=== PATIENT | male | born 1930 | race Caucasian/White ===

== ENCOUNTER 2017-09-30 07:45 | Inpatient (IN) | payer OTHER ==
[~2017-09-30] VITALS: Ht 172.7 cm; Wt 70.3 kg
[2017-09-30] MEDS ORDERED: SODIUM CHLORIDE 0.9% 1000ML 1,000 ML IV ONE (08:01)
[2017-09-30] MEDS ORDERED: SODIUM CHLORIDE 0.9% 1000ML 1,000 ML IV STA (08:01)
--- NOTE | 2017-09-30 08:04 | EMERGENCY ROOM VISIT NOTE ---
History Report prepared by Pierre: Ancelmo Burch Under the Supervision of: Dr. Orestes Jaffe M.D. First contact with patient: 07:56 Chief Complaint: ILLNESS Stated Complaint: GENERALIZED WEAKNESS History of Present Illness The patient is an 86 year old male who presents to the Emergency Room via EMS with complaints of a persistent illness that started a week ago. He states that he thinks he has a UTI, and has been getting up every 15 minutes to urinate. The patient says that he does not have any burning with urination or any blood in his urine. He notes that upon waking this morning, he felt weak all over and could not stop shaking. The patient denies any back pain, fevers, nausea, vomiting, cough, shortness of breath, chest pain, leg weakness or numbness, hematochezia, or melena. The patient says that he is not on any blood thinners, and notes no chronic medical conditions. Source of History: patient Onset: A week ago Position: other (global - illness) Quality: other (thinks has UTI) Timing: other (persistent) Associated Symptoms: + urinary symptoms (increased frequency, denies burning or blood), + weakness (generalized), No fevers, No chest pain, No SOB, No nausea, No vomiting, No back pain, No melena, No hematochezia, No numbness ( leg) Note: Associated symptoms: Shaking this morning. Review of Systems See HPI for pertinent positives & negatives. A total of 10 systems reviewed and were otherwise negative. Past Medical & Surgical Medical Problems: (1) Gout (2) Hyperlipidemia (3) Hypothyroidism (4) No chronic diseases present (5) Status post placement of implantable loop recorder (6) UTI (urinary tract infection) Surgical Problems: (1) S/P appy (2) S/P hernia repair Old medical records were reviewed. Nurse's notes were reviewed and I agree with. Family History Family history omitted secondary to patient's advanced age. Social History Marital Status: Housing Status: lives with family Occupation Status: retired Current/Historical Medications Scheduled Allopurinol (Zyloprim), 100 MG PO DAILY Levothyroxine Sodium (Synthroid), 1 TAB PO DAILY Simvastatin (Zocor), 20 MG PO QPM Allergies Coded Allergies: Penicillins (Unverified Allergy, Unknown, RASH, 09/30/17) Physical Exam Vital Signs Date Time Temp Pulse Resp B/P (MAP) Pulse Ox O2 Delivery O2 Flow Rate FiO2 09/30/17 10:05 93 24 09/30/17 10:00 96/57 09/30/17 09:50 99 22 09/30/17 09:35 100 16 09/30/17 09:30 113/52 09/30/17 09:20 97 23 09/30/17 09:05 101 20 93 09/30/17 09:00 133/56 09/30/17 08:50 104 18 97 09/30/17 08:45 103 19 97 09/30/17 08:45 Room Air 09/30/17 08:43 102 09/30/17 08:36 152/62 09/30/17 07:56 37.0 100 18 149/66 96 Room Air Physical Exam General: Non-ill appearing older male in no acute distress. HEENT: Normal cephalic atraumatic. Pupils are equal round and reactive to light. Extraocular movements are intact. Oropharynx is pink with moist mucous membranes. No swelling of the mouth lips or tongue. Neck: Supple with a midline trachea. No meningeal signs or stiffness, no JVD or bruits. No Stridor. Chest: Clear to auscultation bilaterally. No wheezes or rhonchi. No increased work of breathing. Heart: regular rate and rhythm. Abdomen: Bladder feels distended but nontender. Soft, without rebound guarding or rigidity. Extremities: No cyanosis clubbing or edema. No calf tenderness or assymetry Spine/Back. Non tender to palpation. No CVA tenderness Skin: Good turgor without rashes. Neurologic exam: Cranial nerves two through 12 are intact. Motor and sensation are intact and symmetrical throughout. Medical Decision & Procedures ER Provider Diagnostic Interpretation: X-ray results as stated below per interpretation by me and the radiologist: CHEST ONE VIEW PORTABLE CLINICAL HISTORY: 86 years-old Male presenting with CHEST PAIN. TECHNIQUE: Portable upright AP view of the chest was obtained. COMPARISON: None. FINDINGS: An external device projects over the left heart border. Atherosclerosis of aortic arch. Cardiac silhouette top normal in size. Minimal left basilar opacity. No large effusion or pneumothorax. Degenerative changes of the thoracic spine. Upper abdomen normal. IMPRESSION: 1. Minimal left basilar opacity likely atelectasis. No other evidence of acute cardiopulmonary disease. Electronically signed by: Inocente Arnett M.D. 09/30/2017 8:22 AM Dictated Date/Time: 09/30/2017 8:21 AM Laboratory Results 09/30/17 08:10 Red Blood Count 4.92, Mean Corpuscular Volume 93.7, Mean Corpuscular Hemoglobin 32.7, Mean Corpuscular Hemoglobin Concent 34.9, Mean Platelet Volume 11.6, Neutrophils (%) (Auto) 90.4, Lymphocytes (%) (Auto) 7.1, Monocytes (%) (Auto) 1.0, Eosinophils (%) (Auto) 0.0, Basophils (%) (Auto) 0.0, Neutrophils # (Auto) 1.79, Lymphocytes # (Auto) 0.14, Monocytes # (Auto) 0.02, Eosinophils # (Auto) 0.00, Basophils # (Auto) 0.00 09/30/17 08:10 Test 09/30/17 00:00 09/30/17 08:10 09/30/17 08:21 Urine Color YELLOW Urine Appearance CLOUDY (CLEAR) Urine pH 6.0 (4.5-7.5) Urine Specific [place] 1.013 (1.000-1.030) Urine Protein TRACE (NEG) Urine Glucose (UA) NEG (NEG) Urine Ketones NEG (NEG) Urine Occult Blood 1+ (NEG) Urine Nitrite NEG (NEG) Urine Bilirubin NEG (NEG) Urine Urobilinogen NEG (NEG) Urine Leukocyte Esterase MODERATE (NEG) Urine WBC (Auto) >30 /hpf (0-5) Urine RBC (Auto) 0-4 /hpf (0-4) Urine Hyaline Casts (Auto) 1-5 /lpf (0-5) Urine Epithelial Cells (Auto) 0-5 /lpf (0-5) Urine Bacteria (Auto) 1+ (NEG) White Blood Count 1.98 K/uL (4.8-10.8) Red Blood Count 4.92 M/uL (4.7-6.1) Hemoglobin 16.1 g/dL (14.0-18.0) Hematocrit 46.1 % (42-52) Mean Corpuscular Volume 93.7 fL (80-100) Mean Corpuscular Hemoglobin 32.7 pg (25-34) Mean Corpuscular Hemoglobin Concent 34.9 g/dl (32-36) Platelet Count 121 K/uL (130-400) Mean Platelet Volume 11.6 fL (7.4-10.4) Neutrophils (%) (Auto) 90.4 % Lymphocytes (%) (Auto) 7.1 % Monocytes (%) (Auto) 1.0 % Eosinophils (%) (Auto) 0.0 % Basophils (%) (Auto) 0.0 % Neutrophils # (Auto) 1.79 K/uL (1.4-6.5) Lymphocytes # (Auto) 0.14 K/uL (1.2-3.4) Monocytes # (Auto) 0.02 K/uL (0.11-0.59) Eosinophils # (Auto) 0.00 K/uL (0-0.5) Basophils # (Auto) 0.00 K/uL (0-0.2) RDW Standard Deviation 45.9 fL (36.4-46.3) RDW Coefficient of Variation 13.3 % (11.5-14.5) Immature Granulocyte % (Auto) 1.5 % Immature Granulocyte # (Auto) 0.03 K/uL (0.00-0.02) Prothrombin Time 10.6 SECONDS (9.0-12.0) Prothromb Time International Ratio 1.0 (0.9-1.1) Anion Gap 11.0 mmol/L (3-11) Est Creatinine Clear Calc Drug Dose 37.2 ml/min Estimated GFR () 51.8 Estimated GFR (Non- 44.7 BUN/Creatinine Ratio 14.3 (10-20) Calcium Level 9.4 mg/dl (8.5-10.1) Total Bilirubin 1.5 mg/dl (0.2-1) Direct Bilirubin 0.5 mg/dl (0-0.2) Aspartate Amino Transf (AST/SGOT) 36 U/L (15-37) Alanine Aminotransferase (ALT/SGPT) 26 U/L (12-78) Alkaline Phosphatase 242 U/L (45-117) Total Protein 7.4 gm/dl (6.4-8.2) Albumin 3.4 gm/dl (3.4-5.0) Lipase 126 U/L (73-393) Bedside Lactic Acid Venous 2.62 mmol/L (0.90-1.70) Laboratory studies as stated above per my review. Medications Administered Medications (Trade) Dose Ordered Sig/Nataly Route Start Time Stop Time Status Last Admin Dose Admin Sodium Chloride 1,000 ml @ 999 mls/hr Q1H1M STAT IV 09/30/17 08:01 09/30/17 09:01 DC 09/30/17 08:15 999 MLS/HR Sodium Chloride 1,000 ml @ 150 mls/hr Q6H40M ONCE IV 09/30/17 08:01 09/30/17 11:30 DC 09/30/17 08:49 150 MLS/HR Ondansetron HCl (Zofran Inj) 4 mg STK-MED ONCE .ROUTE 09/30/17 08:50 09/30/17 08:51 DC 09/30/17 08:54 4 MG Levofloxacin (Levaquin / D5W) 500 mg NOW ONCE IV 09/30/17 09:15 09/30/17 09:16 DC 09/30/17 09:22 500 MG ECG Indication: weakness Rate (beats per minute): 104 Rhythm: sinus tachycardia Findings: other (nonspecific ST abnormality) Comparison ECG Date: no prior available ED Course 0758: Past medical records reviewed. The patient was evaluated in room B2, and a complete history and physical examination were performed. 0801: Ordered NSS 1000 ml @ 150 mls/hr IV, NSS 1000 ml @ 999 mls/hr IV. 0915: Ordered Levaquin / D5W 500 mg IV. 0920: Upon reevaluation, the patient is resting and had 2 liters in the Warren and is feeling slightly nauseated. I discussed the results and treatment plan with the patient and his . They verbalized agreement of the treatment plan. The patient will be evaluated for further management. 0927: Discussed the patient's case with Dr. Santino Tilley acid concentrator. The patient will be evaluated for further management. Medical Decision Differentials include UTI, sepsis, urinary retention, electrolyte or metabolic abnormality, pneumonia, cardiac disease. This patient comes in as described above. He was placed in room B2. He is here for urinary symptoms for about a week he also felt weak and may have had some shakes this morning although feels better now. He is afebrile stable vital signs . His bladder does feel distended on exam although he does need to urinate. IV access established. A full septic workup was obtained and did a bladder scan as well as urinalysis and culture blood cultures and lactic acid were obtained he was reassessed frequently. He was found to be retaining urine and a Warren catheter was placed. His urine does suggest infection. His lactic acid is also elevated. His white count and platelets on the low side. He was given IV Levaquin as he is penicillin allergic and also this will give prostate coverages well in the event that that is the source. I do think he needs to be admitted/observed for further treatment and evaluation. I did consult the [facility] hospitalist for these measures. Medication Reconcilliation Current Medication List: was personally reviewed by me Blood Pressure Screening Patient's blood pressure: Elevated blood pressure Further monitored in hospital. Consults Time Called: [phone] Consulting Physician: Dr. Santino Tilley acid concentrator Returned Call: [phone] Discussed the patient's case with Dr. Santino Tilley acid concentrator. The patient will be evaluated for further management. Impression Primary Impression: PNA (pneumonia) Scribe Attestation The scribe's documentation has been prepared under my direction and personally reviewed by me in its entirety. I confirm that the note above accurately reflects all work, treatment, procedures, and medical decision making performed by me. Departure Information Dispostion Being Evaluated By Hospitalist Referrals No Doctor, Assigned (PCP) Patient Instructions My [facility] Problem Qualifiers Primary Impression: PNA (pneumonia)
--- NOTE | 2017-09-30 08:23 | DIAGNOSTIC IMAGING REPORT ---
CHEST ONE VIEW PORTABLE CLINICAL HISTORY: 86 years-old Male presenting with CHEST PAIN. TECHNIQUE: Portable upright AP view of the chest was obtained. COMPARISON: None. FINDINGS: An external device projects over the left heart border. Atherosclerosis of aortic arch. Cardiac silhouette top normal in size. Minimal left basilar opacity. No large effusion or pneumothorax. Degenerative changes of the thoracic spine. Upper abdomen normal. IMPRESSION: 1. Minimal left basilar opacity likely atelectasis. No other evidence of acute cardiopulmonary disease. Electronically signed by: Inocente Arnett M.D. 09/30/2017 8:22 AM Dictated Date/Time: 09/30/2017 8:21 AM
[2017-09-30 08:30] LABS: HEMATOCRIT 46.1 % (42-52); HEMOGLOBIN 16.1 g/dL (14.0-18.0); IG# 0.03 K/uL (0.00-0.02); LYMPH % 7.1 %; LYMPH ABS # 0.14 K/uL (1.2-3.4); MEAN CELL VOLUME 93.7 fL (80-100); MEAN CORPUSCULAR HEMOGLOBIN 32.7 pg (25-34); MEAN CORPUSCULAR HGB CONC 34.9 g/dl (32-36); MEAN PLATELET VOLUME 11.6 fL (7.4-10.4); MONO ABS # 0.02 K/uL (0.11-0.59); NEUT % 90.4 %; NEUT ABS # 1.79 K/uL (1.4-6.5); PLATELET COUNT 121 K/uL (130-400); RED CELL DISTRIBUTION WIDTH CV 13.3 % (11.5-14.5); RED CELL DISTRIBUTION WIDTH SD 45.9 fL (36.4-46.3); WHITE BLOOD COUNT 1.98 K/uL (4.8-10.8)
[2017-09-30] MEDS ORDERED: SIMV20TA2 PO (08:45)
[2017-09-30] MEDS ORDERED: LEVO25TA PO (08:45)
[2017-09-30] MEDS ORDERED: ALLO100T PO (08:46)
[2017-09-30] MEDS ORDERED: ONDANSETRON INJ 2 MG/ML 2 ML VIAL ONE (08:50)
[2017-09-30 08:52] LABS: ALBUMIN 3.4 gm/dl (3.4-5.0); CALCIUM 9.4 mg/dl (8.5-10.1); CREATININE 1.43 mg/dl (0.60-1.40); POTASSIUM 3.9 mmol/L (3.5-5.1)
[2017-09-30 08:55] LABS: TOTAL PROTEIN 7.4 gm/dl (6.4-8.2)
[2017-09-30 09:05] VITALS: O2SAT 93
[2017-09-30] MEDS ORDERED: LEVAQUIN 500MG / 100ML D5W IV ONE (09:15)
[2017-09-30] MEDS ORDERED: IV FLUIDS COMPLETED PRN (10:30)
[2017-09-30] MEDS ORDERED: ONDANSETRON INJ 2 MG/ML 2 ML VIAL IV PRN (10:45)
[2017-09-30] MEDS ORDERED: POLYETHYLENE (MIRALAX) 17 GM PACK PO PRN (10:45)
[2017-09-30] MEDS ORDERED: ACETAMINOPHEN 325 MG TAB PO PRN (10:45)
[2017-09-30] MEDS ORDERED: LEVO50TA PO (10:46)
--- NOTE | 2017-09-30 11:01 | History and Physical ---
History & Physical Date & Time of Service: Sep 30, 2017 at 10:46 Chief Complaint: Generalized Weakness Primary Care Physician: Ha Rain MD History of Present Illness Source: patient, family, spouse, clinic records 86 yo M presents with progressive weakness and acute urinary retention. He reports difficulty urinating since Mon (4 days ago), denies dysuria, flank pain or fevers but reports some chills this morning. He was feeling like he had a UTI and called his PCP who ordered a urine sample that looked infected. No culture is available at this time. The patient was scheduled to followup this morning but came to the ER instead. Family reports that he is progressively more weak and was falling at home. They also report that he passed out on night after dinner when trying to arise out of a chair. reports that this happens to him whenever he gets an infection. For example, they went to [facility] in Jul 2017 and he had bronchitis and suffered a syncopal episode then , also. He is under the care of Dr. Jorgensen and has a loop recorder in place with no abnormalities detected to date. At baseline, he works out at the [employer] three times per week for an hour, and ambulates without using an assistive device. ROS is otherwise negative. Past Medical/Surgical History Medical Problems: (1) Gout Status: Chronic (2) Hyperlipidemia Status: Chronic (3) Hypothyroidism Status: Chronic (4) No chronic diseases present Status: Chronic (5) Status post placement of implantable loop recorder Status: Chronic Surgical Problems: (1) S/P appy Status: Chronic (2) S/P hernia repair Status: Chronic Family History FH: diabetes mellitus MOTHER FH: heart attack FATHER, Onset:60 years & older Social History Smoking Status: Never Smoker Smokeless Tobacco Use: No Alcohol Use: socially Drug Use: none Marital Status: Housing status: lives with significant other Occupational Status: retired Immunizations History of Influenza Vaccine: Yes Influenza Vaccine Date: Aug 07, 2017 History of Tetanus Vaccine?: Yes Tetanus Immunization Date: Jan 22, 2010 History of Pneumococcal: Yes Pneumococcal Date: February 20, 2015 History of Hepatitis B Vaccine: Unknown Multi-Drug Resistant Organisms History of MDRO: No Allergies Coded Allergies: Penicillins (Unverified Allergy, Unknown, RASH, 09/30/17) Home Medications Scheduled Allopurinol (Zyloprim), 100 MG PO DAILY Levothyroxine Sodium (Synthroid), 1 TAB PO DAILY Simvastatin (Zocor), 20 MG PO QPM Review of Systems At least ten systems were reviewed and negative except as indicated in HPI. Physical Exam Vital Signs Date Time Temp Pulse Resp B/P (MAP) Pulse Ox O2 Delivery O2 Flow Rate FiO2 09/30/17 10:44 98 09/30/17 08:45 103 19 97 09/30/17 08:45 Room Air 09/30/17 08:43 102 09/30/17 08:36 152/62 09/30/17 07:56 37.0 100 18 149/66 96 Room Air General Appearance: WD/WN, no apparent distress Head: normocephalic, atraumatic Eyes: normal inspection, PERRL, sclerae normal ENT: pharynx normal, + pertinent finding ([place]OW-uses hearing aids, very dry mucous membranes) Neck: supple, no adenopathy, trachea midline Respiratory/Chest: lungs clear, normal breath sounds, no respiratory distress, no accessory muscle use Cardiovascular: no edema, no gallop, no JVD, no murmur, normal peripheral pulses, + tachycardia (reg rhythm) Abdomen/GI: normal bowel sounds, non tender, soft Back: normal inspection, no CVA tenderness Extremities/Musculoskelatal: normal inspection, no pedal edema, normal range of motion Neurologic/Psych: bleacher lard II-XII nml as tested, no motor/sensory deficits, alert, normal mood/affect, oriented x 3 Skin: normal color, warm/dry, no rash Diagnostics Laboratory Results 09/30/17 08:10 Red Blood Count 4.92, Mean Corpuscular Volume 93.7, Mean Corpuscular Hemoglobin 32.7, Mean Corpuscular Hemoglobin Concent 34.9, Mean Platelet Volume 11.6, Neutrophils (%) (Auto) 90.4, Lymphocytes (%) (Auto) 7.1, Monocytes (%) (Auto) 1.0, Eosinophils (%) (Auto) 0.0, Basophils (%) (Auto) 0.0, Neutrophils # (Auto) 1.79, Lymphocytes # (Auto) 0.14, Monocytes # (Auto) 0.02, Eosinophils # (Auto) 0.00, Basophils # (Auto) 0.00 09/30/17 08:10 Test 09/30/17 00:00 12/30/17 08:10 09/30/17 08:21 Urine Color YELLOW Urine Appearance CLOUDY (CLEAR) Urine pH 6.0 (4.5-7.5) Urine Specific [place] 1.013 (1.000-1.030) Urine Protein TRACE (NEG) Urine Glucose (UA) NEG (NEG) Urine Ketones NEG (NEG) Urine Occult Blood 1+ (NEG) Urine Nitrite NEG (NEG) Urine Bilirubin NEG (NEG) Urine Urobilinogen NEG (NEG) Urine Leukocyte Esterase MODERATE (NEG) Urine WBC (Auto) >30 /hpf (0-5) Urine RBC (Auto) 0-4 /hpf (0-4) Urine Hyaline Casts (Auto) 1-5 /lpf (0-5) Urine Epithelial Cells (Auto) 0-5 /lpf (0-5) Urine Bacteria (Auto) 1+ (NEG) White Blood Count 1.98 K/uL (4.8-10.8) Red Blood Count 4.92 M/uL (4.7-6.1) Hemoglobin 16.1 g/dL (14.0-18.0) Hematocrit 46.1 % (42-52) Mean Corpuscular Volume 93.7 fL (80-100) Mean Corpuscular Hemoglobin 32.7 pg (25-34) Mean Corpuscular Hemoglobin Concent 34.9 g/dl (32-36) Platelet Count 121 K/uL (130-400) Mean Platelet Volume 11.6 fL (7.4-10.4) Neutrophils (%) (Auto) 90.4 % Lymphocytes (%) (Auto) 7.1 % Monocytes (%) (Auto) 1.0 % Eosinophils (%) (Auto) 0.0 % Basophils (%) (Auto) 0.0 % Neutrophils # (Auto) 1.79 K/uL (1.4-6.5) Lymphocytes # (Auto) 0.14 K/uL (1.2-3.4) Monocytes # (Auto) 0.02 K/uL (0.11-0.59) Eosinophils # (Auto) 0.00 K/uL (0-0.5) Basophils # (Auto) 0.00 K/uL (0-0.2) RDW Standard Deviation 45.9 fL (36.4-46.3) RDW Coefficient of Variation 13.3 % (11.5-14.5) Immature Granulocyte % (Auto) 1.5 % Immature Granulocyte # (Auto) 0.03 K/uL (0.00-0.02) Prothrombin Time 10.6 SECONDS (9.0-12.0) Prothromb Time International Ratio 1.0 (0.9-1.1) Anion Gap 11.0 mmol/L (3-11) Est Creatinine Clear Calc Drug Dose 37.2 ml/min Estimated GFR () 51.8 Estimated GFR (Non- 44.7 BUN/Creatinine Ratio 14.3 (10-20) Calcium Level 9.4 mg/dl (8.5-10.1) Total Bilirubin 1.5 mg/dl (0.2-1) Direct Bilirubin 0.5 mg/dl (0-0.2) Aspartate Amino Transf (AST/SGOT) 36 U/L (15-37) Alanine Aminotransferase (ALT/SGPT) 26 U/L (12-78) Alkaline Phosphatase 242 U/L (45-117) Total Protein 7.4 gm/dl (6.4-8.2) Albumin 3.4 gm/dl (3.4-5.0) Lipase 126 U/L (73-393) Bedside Lactic Acid Venous 2.62 mmol/L (0.90-1.70) Date/Time Source Procedure Growth Status 09/30/17 08:15 Blood Blood Culture Pending Received Results Past 24 Hours Test 09/30/17 00:00 09/30/17 08:10 09/30/17 08:21 Range/Units Urine Color YELLOW Urine Appearance CLOUDY CLEAR Urine pH 6.0 4.5-7.5 Urine Specific [place] 1.013 1.000-1.030 Urine Protein TRACE NEG Urine Glucose (UA) NEG NEG Urine Ketones NEG NEG Urine Occult Blood 1+ NEG Urine Nitrite NEG NEG Urine Bilirubin NEG NEG Urine Urobilinogen NEG NEG Urine Leukocyte Esterase MODERATE NEG Urine WBC (Auto) >30 0-5 /hpf Urine RBC (Auto) 0-4 0-4 /hpf Urine Hyaline Casts (Auto) 1-5 0-5 /lpf Urine Epithelial Cells (Auto) 0-5 0-5 /lpf Urine Bacteria (Auto) 1+ NEG White Blood Count 1.98 4.8-10.8 K/uL Red Blood Count 4.92 4.7-6.1 M/uL Hemoglobin 16.1 14.0-18.0 g/dL Hematocrit 46.1 42-52 % Mean Corpuscular Volume 93.7 80-100 fL Mean Corpuscular Hemoglobin 32.7 25-34 pg Mean Corpuscular Hemoglobin Concent 34.9 32-36 g/dl Platelet Count 121 130-400 K/uL Mean Platelet Volume 11.6 7.4-10.4 fL Neutrophils (%) (Auto) 90.4 % Lymphocytes (%) (Auto) 7.1 % Monocytes (%) (Auto) 1.0 % Eosinophils (%) (Auto) 0.0 % Basophils (%) (Auto) 0.0 % Neutrophils # (Auto) 1.79 1.4-6.5 K/uL Lymphocytes # (Auto) 0.14 1.2-3.4 K/uL Monocytes # (Auto) 0.02 0.11-0.59 K/uL Eosinophils # (Auto) 0.00 0-0.5 K/uL Basophils # (Auto) 0.00 0-0.2 K/uL RDW Standard Deviation 45.9 36.4-46.3 fL RDW Coefficient of Variation 13.3 11.5-14.5 % Immature Granulocyte % (Auto) 1.5 % Immature Granulocyte # (Auto) 0.03 0.00-0.02 K/uL Sodium Level 136 136-145 mmol/L Potassium Level 3.9 3.5-5.1 mmol/L Chloride Level 100 98-107 mmol/L Carbon Dioxide Level 25 21-32 mmol/L Anion Gap 11.0 3-11 mmol/L Blood Urea Nitrogen 20 7-18 mg/dl Creatinine 1.43 0.60-1.40 mg/dl Est Creatinine Clear Calc Drug Dose 37.2 ml/min Estimated GFR () 51.8 Estimated GFR (Non- 44.7 BUN/Creatinine Ratio 14.3 10-20 Random Glucose 132 70-99 mg/dl Calcium Level 9.4 8.5-10.1 mg/dl Total Bilirubin 1.5 0.2-1 mg/dl Direct Bilirubin 0.5 0-0.2 mg/dl Aspartate Amino Transf (AST/SGOT) 36 15-37 U/L Alanine Aminotransferase (ALT/SGPT) 26 12-78 U/L Alkaline Phosphatase 242 45-117 U/L Total Protein 7.4 6.4-8.2 gm/dl Albumin 3.4 3.4-5.0 gm/dl Lipase 126 73-393 U/L Bedside Lactic Acid Venous 2.62 0.90-1.70 mmol/L Microbiology Results 09/30/17 Blood Culture, Received Pending 09/30/17 Blood Culture, Received Pending Diagnostic Radiology [~ rep ct add3]] CHEST ONE VIEW PORTABLE CLINICAL HISTORY: 86 years-old Male presenting with CHEST PAIN. TECHNIQUE: Portable upright AP view of the chest was obtained. COMPARISON: None. FINDINGS: An external device projects over the left heart border. Atherosclerosis of aortic arch. Cardiac silhouette top normal in size. Minimal left basilar opacity. No large effusion or pneumothorax. Degenerative changes of the thoracic spine. Upper abdomen normal. IMPRESSION: 1. Minimal left basilar opacity likely atelectasis. No other evidence of acute cardiopulmonary disease. EKG ST 104 Impression Assessment and Plan 86 yo M presents with clinical picture consistent with sepsis 2/2 UTI with acute urinary retention. 1. Sepsis 2/2 UTI-IVF continued and will repeat lactate until <2. Abx changed to ceftriaxone empirically while awaiting culture results. Blood cultures were ordered. No CVA tenderness or clinical evidence of pyelo at this time. Warren placed in ER wtih 2L out per ER physician. Started 1/2 NS to avoid dehydration from poss post-obstructive diuresis. Urology to see. No h/o BPH reported. Has h/o syncope so would use caution with alpha-blockers, etc. Orthostatics qshift. PT/OT consult. Monitor on telemetry. 2. Leukopenia-poss related to sepsis. No baseline available for comparison in the records. Cont to monitor. 3. Acute urinary retention-likely 2/2 UTI. Plan as above. 4. YONAS likely related to post-obstructive issues and/or prerenal azotemia-cont fluids and Warren. Trend PRP. Normal at baseline, no CKD history. 5. Falls at home-likely related to infection as patient is very functional at baseline. PT/OT 6. Syncope likely related to orthostasis with infection as this is his history and patient felt bad just prior to and was changing positions just after dinner when this occurred. Follows with [facility] barry and has implantable loop recorder in place. In the past this has been interrogated with syncope and been unremarkable for arrhythmia. No echo on file so will order one now for completion. No murmur was heard on exam and pt has no h/o cardiac disease. 7. Hypothyroidism-cont home dose Synthroid 8. Gout-cont daily allopurinol DVT proph-heparin Full Code Dispo-to telemetry [facility] Level of Care Telemetry Resuscitation Status FULL RESUSCITATION VTE Prophylaxis VTE Risk Assessment Done? Y/N: Yes Risk Level: Moderate Given or contraindicated: Unfractionated heparin SQ
--- NOTE | 2017-09-30 11:30 | NUR ---
A: Report received from Loyd RN in ED. Pt. arrived to 279-1, pulled from litter to bed with assist x3 d/t severe weakness. See admission assessment for full customer liaison. at bedside. Oriented to room, call kruger system and lights. IV fluids infusing as ordered. Call kruger within reach. Continue to monitor.
[2017-09-30] MEDS: SODIUM CHLORIDE 0.45% 1000ML 1,000 ML IV SCH ×2 (11:31→21:57)
[2017-09-30 11:40] VITALS: Ht 172.7 cm; Wt 70.3 kg
[2017-09-30 11:45] VITALS: BP 94/57; PULSE 96; TEMP 37; O2SAT 94
[2017-09-30] MEDS: CEFTRIAXONE SOD INJ 1 GM in DEXTROSE 5% ADD-VANTAGE 50ML 50 ML IV SCH (12:23)
[2017-09-30] MEDS: HEPARIN SOD 5000 UNIT/0.5 ML CARP SQ SCH ×2 (14:41→21:57)
[2017-09-30 14:54] VITALS: BP 88/48; PULSE 93; TEMP 36.7; O2SAT 92
--- NOTE | 2017-09-30 16:00 | NUR ---
A: Alert and oriented x4. VSS on room air. Family at bedside. Denies pain, shortness of breath or chest pain. NSR on monitor. Call kruger within reach. Continue to monitor.
[2017-09-30 19:46] VITALS: BP 97/60; PULSE 79; TEMP 36.8; O2SAT 95
--- NOTE | 2017-09-30 20:00 | NUR ---
A/OBS note: Patient assessed. See EMR for full assessment. AAO x4. NSR on the monitor. Warren catheter patent. Receiving IVF 0.45 NSS @ 125mls/hr. Denies pain. Will continue to monitor.
[2017-09-30] MEDS: SIMVASTATIN 20 MG TAB PO SCH (20:45)
[2017-09-30 23:06] VITALS: BP 83/44; PULSE 69; TEMP 36.9; O2SAT 96
--- NOTE | 2017-09-30 23:21 | Urology Consultation ---
History General Date of Service: Sep 30, 2017. Primary Care Physician: Ha Rain MD Pt seen a urologist before?: No History of Present Illness 86 yo M presents with progressive weakness and acute urinary retention. He reports difficulty urinating since Mon (4 days ago), denies dysuria, flank pain or fevers but reports some chills this morning. He was feeling like he had a UTI and called his PCP who ordered a urine sample that looked infected. No culture is available at this time. The patient was scheduled to followup this morning but came to the ER instead. Family reports that he is progressively more weak and was falling at home. They also report that he passed out on night after dinner when trying to arise out of a chair. reports that this happens to him whenever he gets an infection. Pt denies any significant urologic hx. At a baseline he does have some of the typical sxs of BPH with a slower stream, urge, freq, not feeling like he empties completely, and nocturia. He isn't overly bothered by these sxs unless he feels like he has an infx. In the ER a bladder scan was performed and this showed an elevated residual. In the ED a arshad was placed at >2L was drained. The urine was cinda. No hematuria. No cloudiness. Since then the arsahd has been draining adequately. He was placed on fluid replacement for post-obst diuresis. His Cr is slightly elevated. UA susp for possible infx. Cx pending. ROS is otherwise negative. Laboratory Labs were reviewed and are within normal limits unless listed below. Labs are available in the chart and at [facility] Problem List Medical Problems: (1) PNA (pneumonia) Status: Acute Past History other Past Surgical History: other Family History FH: diabetes mellitus MOTHER FH: heart attack FATHER, Onset:60 years & older Social History Hx Tobacco Use In Past Year?: No Marital status: Housing status: lives with significant other Occupation status: retired Immunizations History of Influenza Vaccine: Yes Influenza Vaccine Date: Aug 07, 2017 History of Tetanus Vaccine?: Yes Tetanus Immunization Date: Jan 22, 2010 History of Pneumococcal: Yes Pneumococcal Date: February 20, 2015 History of Hepatitis B Vaccine: Unknown History of MDRO No Allergies Coded Allergies: Penicillins (Unverified Allergy, Unknown, RASH, 09/30/17) Medications Home Medications: Home Meds and Scripts Medications Dose Route/Sig Max Daily Dose Days Date Category Synthroid (Levothyroxine Sodium) 50 Mcg Tab 1 Tab PO DAILY 30 09/30/17 Reported Zyloprim (Allopurinol) 100 Mg Tab 100 Mg PO DAILY 09/30/17 Reported Zocor (Simvastatin) 20 Mg Tab 20 Mg PO QPM 09/30/17 Reported Inpatient Medications: Current Inpatient Medications Medications (Trade) Dose Ordered Sig/Nataly Route Start Time Stop Time Status Last Admin Dose Admin Miscellaneous (Iv Fluids Completed) 1 ea PRN PRN N/A 09/30/17 10:30 09/30/18 10:29 Heparin Sodium (Porcine) (Heparin Sq 5000 Unit/0.5ml) 5,000 unit Q8 SQ 09/30/17 14:00 10/30/17 13:59 09/30/17 21:57 5,000 UNIT Acetaminophen (Tylenol Tab) 650 mg Q4H PRN PO 09/30/17 10:45 10/30/17 10:44 Ondansetron HCl (Zofran Inj) 4 mg Q6H PRN IV 09/30/17 10:45 10/30/17 10:44 Polyethylene (Miralax Powder Packet) 17 gm DAILY PRN PO 09/30/17 10:45 10/30/17 10:44 Sodium Chloride 1,000 ml @ 125 mls/hr Q8H IV 09/30/17 12:00 10/01/17 03:59 09/30/17 21:57 125 MLS/HR Ceftriaxone Sodium 1 gm/ Dextrose 50 ml @ 100 mls/hr Q24H IV 09/30/17 12:00 10/10/17 11:59 09/30/17 12:23 100 MLS/HR Allopurinol (Zyloprim Tab) 100 mg DAILY PO 10/01/17 09:00 10/31/17 08:59 Levothyroxine Sodium (Synthroid Tab) 50 mcg DAILYBB PO 10/01/17 06:30 10/31/17 06:29 Simvastatin (Zocor Tab) 20 mg QPM PO 09/30/17 21:00 10/30/17 20:59 09/30/17 20:45 20 MG Review of Systems Review of Systems Neurological: + dizzy, + passing out Male : + nocturia more than once/night All Other Systems: Reviewed and Negative Physical Exam Vital Signs: Vital Signs Past 12 Hours Date Time Temp Pulse Resp B/P (MAP) Pulse Ox O2 Delivery O2 Flow Rate FiO2 09/30/17 23:06 36.9 69 18 83/44 (57) 96 Room Air 09/30/17 19:46 36.8 79 18 97/60 (72) 95 Room Air 09/30/17 16:00 Room Air 09/30/17 14:54 36.7 93 17 88/48 (61) 92 Room Air 09/30/17 11:45 37.0 96 18 94/57 (69) 94 Room Air 09/30/17 11:40 Room Air Physical Exam: General Appearance: WD/WN, no apparent distress ENT: hearing grossly normal Neck: supple, no adenopathy Respiratory/Chest: lungs clear Cardiovascular: regular rate, rhythm Extremities: normal range of motion, normal inspection Neurologic/Psychiatric: alert, oriented x 3 Skin: warm/dry, no rash Lymphatic: no adenopathy Assessment & Plan Assessment & Plan (1) Urinary retention (2) UTI (urinary tract infection) The patient presented with large volume urinary retention and UTI. Although he denied significant urinary complaints prior, to have a residual of >2L is indicative of a chronic process. Cr should trend down with arshad drainage. Monitor lytes during diuresis. Continue abx until cultures are finalized. Given issues with passing out I would hold off on Flomax for now. Cystoscopy may be helpful to further eval outlet. This can be done in an outpatient setting. I would leave arshad in place for atleast 1 week and try to remove it before completion of abx course. If Cr doesn't improve as expected then FLAVIO to eval kidneys for possible hydronephrosis.
[2017-09-30 23:27] VITALS: BP 98/56; PULSE 73
[2017-10-01] VITALS (8 sets, daily range): BP systolic 85–113; BP diastolic 52–70; PULSE 57–83; TEMP 36.3–36.5; O2SAT 94–97
--- NOTE | 2017-10-01 | NUR ---
A/Obs note: Assessment unchanged. NSR on the monitor. Resting in bed at this time. IVF infusing. Warren intact. Will cont to monitor.
--- NOTE | 2017-10-01 04:00 | NUR ---
Obs note: Assessment unchanged. NSR on the monitor. IVF completed. Warren Catheter intact. Call kruger in reach. Will continue to monitor.
[2017-10-01] MEDS: HEPARIN SOD 5000 UNIT/0.5 ML CARP SQ SCH ×2 (06:31→14:51)
[2017-10-01] MEDS: LEVOTHYROXINE 50 MCG TAB PO SCH (06:33)
--- NOTE | 2017-10-01 08:00 | NUR ---
A/OBS: Alert and oriented x4. VSS on room air. Denies pain, shortness of breath or chest pain. NSR on monitor. Was able to stand this am for orthostatic vitals, reports decreased weakness from yesterday. Encouraged to ring for assistance. Call kruger within reach. Continue to monitor.
[2017-10-01] MEDS: ALLOPURINOL 100 MG TAB PO SCH (08:36)
[2017-10-01 10:41] LABS: BASO % 0.1 %; BASO ABS # 0.01 K/uL (0-0.2); EOS % 0.1 %; EOS ABS # 0.01 K/uL (0-0.5); HEMATOCRIT 37.7 % (42-52); HEMOGLOBIN 12.8 g/dL (14.0-18.0); IG# 0.07 K/uL (0.00-0.02); LYMPH % 4.5 %; LYMPH ABS # 0.78 K/uL (1.2-3.4); MEAN CELL VOLUME 94.5 fL (80-100); MEAN CORPUSCULAR HEMOGLOBIN 32.1 pg (25-34); MEAN PLATELET VOLUME 11.9 fL (7.4-10.4); MONO % 9.4 %; MONO ABS # 1.61 K/uL (0.11-0.59); NEUT % 85.5 %; NEUT ABS # 14.71 K/uL (1.4-6.5); PLATELET COUNT 133 K/uL (130-400); RED CELL DISTRIBUTION WIDTH CV 13.7 % (11.5-14.5); RED CELL DISTRIBUTION WIDTH SD 47.5 fL (36.4-46.3); WHITE BLOOD COUNT 17.19 K/uL (4.8-10.8)
[2017-10-01 11:03] LABS: CALCIUM 8.3 mg/dl (8.5-10.1); CREATININE 1.05 mg/dl (0.60-1.40); POTASSIUM 3.6 mmol/L (3.5-5.1)
--- NOTE | 2017-10-01 12:00 | NUR ---
A: Assessment unchanged. States that he is feeling better and less weak. Call kruger within reach. Continue to monitor.
[2017-10-01] MEDS: CEFTRIAXONE SOD INJ 1 GM in DEXTROSE 5% ADD-VANTAGE 50ML 50 ML IV SCH (12:08)
--- NOTE | 2017-10-01 13:17 | NUR ---
Case Management: Received discharge planning consult on this pt. Met with him in his room prior to lunch. Pt informs me that he lives in a 3 story condo with 1st floor set up. Pt is independent with ambulation and ADL's. Pt lives with his spouse Nga and his dgt Magdalene lives locally. Pt did give permission to talk with dgt as needed. No discharge need identified at this visit. Will cont to follow.
--- NOTE | 2017-10-01 16:00 | NUR ---
A: Assessment unchanged. at bedside. Denies needs at this time. Call kruger within reach. Continue to monitor.
--- NOTE | 2017-10-01 18:05 | Progress Note ---
Subjective Date of Service: Oct 01, 2017. Subjective Voiding: arshad catheter in place Arshad in place. Urine clear. Minimal pain with arshad. Cr improving. Now 1.05 WBC 17 Blood cx pending. No Urine cx to view. No fevers. No chills. No nausea. No vomitting. Problem List Medical Problems: (1) PNA (pneumonia) Status: Acute Review of Systems All Other Systems: Reviewed and Negative Objective Vital Signs Date Time Temp Pulse Resp B/P (MAP) Pulse Ox O2 Delivery O2 Flow Rate FiO2 10/01/17 16:00 Room Air 10/01/17 14:50 36.4 64 18 97/54 (68) 97 Room Air 10/01/17 12:00 Room Air 10/01/17 11:16 36.5 62 18 93/56 (68) 97 Room Air 10/01/17 08:00 Room Air 10/01/17 07:51 72 105/63 (77) 10/01/17 07:51 71 102/63 (76) 10/01/17 07:50 57 85/52 (63) 10/01/17 07:21 36.5 61 18 97/60 (72) 96 Room Air 10/01/17 04:00 Room Air 10/01/17 04:00 36.5 63 16 92/52 (65) 94 Room Air 10/01/17 00:00 Room Air 09/30/17 23:27 73 98/56 (70) 09/30/17 23:06 36.9 69 18 83/44 (57) 96 Room Air 09/30/17 20:00 Room Air 09/30/17 19:46 36.8 79 18 97/60 (72) 95 Room Air Physical Exam General Appearance: WD/WN Respiratory/Chest: lungs clear Cardiovascular: regular rate, rhythm Skin: no rash Comments: Urine clear. No scrotal edema Laboratory Results Last 24 Hours Test 10/01/17 10:06 White Blood Count 17.19 K/uL Red Blood Count 3.99 M/uL Hemoglobin 12.8 g/dL Hematocrit 37.7 % Mean Corpuscular Volume 94.5 fL Mean Corpuscular Hemoglobin 32.1 pg Mean Corpuscular Hemoglobin Concent 34.0 g/dl Platelet Count 133 K/uL Mean Platelet Volume 11.9 fL Neutrophils (%) (Auto) 85.5 % Lymphocytes (%) (Auto) 4.5 % Monocytes (%) (Auto) 9.4 % Eosinophils (%) (Auto) 0.1 % Basophils (%) (Auto) 0.1 % Neutrophils # (Auto) 14.71 K/uL Lymphocytes # (Auto) 0.78 K/uL Monocytes # (Auto) 1.61 K/uL Eosinophils # (Auto) 0.01 K/uL Basophils # (Auto) 0.01 K/uL RDW Standard Deviation 47.5 fL RDW Coefficient of Variation 13.7 % Immature Granulocyte % (Auto) 0.4 % Immature Granulocyte # (Auto) 0.07 K/uL Sodium Level 137 mmol/L Potassium Level 3.6 mmol/L Chloride Level 105 mmol/L Carbon Dioxide Level 26 mmol/L Anion Gap 6.0 mmol/L Blood Urea Nitrogen 22 mg/dl Creatinine 1.05 mg/dl Est Creatinine Clear Calc Drug Dose 50.7 ml/min Estimated GFR () 75.2 Estimated GFR (Non- 64.9 BUN/Creatinine Ratio 21.0 Random Glucose 106 mg/dl Calcium Level 8.3 mg/dl Magnesium Level 2.2 mg/dl Assessment and Plan (1) Urinary retention (2) UTI (urinary tract infection) Arshad in place. Draining adequately. Continue abx x7-10 days. F/U in office for voiding trial in 7 days. May need cysto in the future.
--- NOTE | 2017-10-01 20:00 | NUR ---
A: Patient assessed. See EMR. AAO x4. NSR on the monitor. Warren catheter intact. Denies pain. Ambulates to bathroom with one assist. at bedside. Call kruger in reach. Will continue to monitor.
--- NOTE | 2017-10-01 20:00 | NUR ---
A: Patient assessed. See EMR for full assessment. AAO x4. NSR on the monitor. Continues to have mild tremors in BL arms. Medicated with po ativan and IV lasix per MD order. On 2L NC. Denies SOB. Call kruger in reach. Rings for assist as needed. Will continue to monitor.
--- NOTE | 2017-10-01 22:00 | NUR ---
ID: Patient admitted with UTI. AAo x4. VSS. Warren catheter draining adequate amount of urine. OOB with one assist. Discharge plan to home, likely Monday.
[2017-10-01] MEDS: SIMVASTATIN 20 MG TAB PO SCH (22:01)
--- NOTE | 2017-10-01 22:01 | Progress Note ---
Medicine Progress Note Date & Time of Visit: Oct 01, 2017 at 11:47. Subjective feels fine today denies fevers or chills denies abdominal pain Warren in place Discussed plan with patient. Objective Last 8 Hrs Date Time Temp Pulse Resp B/P (MAP) Pulse Ox O2 Delivery O2 Flow Rate FiO2 10/01/17 11:16 36.5 62 18 93/56 (68) 97 Room Air 10/01/17 08:00 Room Air 10/01/17 07:51 72 105/63 (77) 10/01/17 07:51 71 102/63 (76) 10/01/17 07:50 57 85/52 (63) 10/01/17 07:21 36.5 61 18 97/60 (72) 96 Room Air 10/01/17 04:00 Room Air 10/01/17 04:00 36.5 63 16 92/52 (65) 94 Room Air Physical Exam: GEN: WNWD, in no acute distress, alert and appropriate HEENT: NC/AT, PERRL, normal sclerae CARDIO: reg rate, S1/2 heard without m/g/r LUNGS: CTA bilaterally, no crackles, rales or wheezes, good diaphragmatic excursion ABD: soft, non-tender, non-distended, no rebound or guarding, +BS EXTREMITY: RP and DP palpable 2+ bilat, no LE swelling or edema, extremities are warm and well-perfused NEURO: CN 2-12 grossly intact MUSC: 5/5 strength throughout, no focal deficits SKIN: warm and dry Laboratory Results: 10/01/17 10:06 Red Blood Count 3.99, Mean Corpuscular Volume 94.5, Mean Corpuscular Hemoglobin 32.1, Mean Corpuscular Hemoglobin Concent 34.0, Mean Platelet Volume 11.9, Neutrophils (%) (Auto) 85.5, Lymphocytes (%) (Auto) 4.5, Monocytes (%) (Auto) 9.4, Eosinophils (%) (Auto) 0.1, Basophils (%) (Auto) 0.1, Neutrophils # (Auto) 14.71, Lymphocytes # (Auto) 0.78, Monocytes # (Auto) 1.61, Eosinophils # (Auto) 0.01, Basophils # (Auto) 0.01 10/01/17 10:06 Test 09/30/17 00:00 09/30/17 08:10 09/30/17 08:21 09/30/17 12:28 Urine Color YELLOW Urine Appearance CLOUDY (CLEAR) Urine pH 6.0 (4.5-7.5) Urine Specific [place] 1.013 (1.000-1.030) Urine Protein TRACE (NEG) Urine Glucose (UA) NEG (NEG) Urine Ketones NEG (NEG) Urine Occult Blood 1+ (NEG) Urine Nitrite NEG (NEG) Urine Bilirubin NEG (NEG) Urine Urobilinogen NEG (NEG) Urine Leukocyte Esterase MODERATE (NEG) Urine WBC (Auto) >30 /hpf (0-5) Urine RBC (Auto) 0-4 /hpf (0-4) Urine Hyaline Casts (Auto) 1-5 /lpf (0-5) Urine Epithelial Cells (Auto) 0-5 /lpf (0-5) Urine Bacteria (Auto) 1+ (NEG) Prothrombin Time 10.6 SECONDS (9.0-12.0) Prothromb Time International Ratio 1.0 (0.9-1.1) Total Bilirubin 1.5 mg/dl (0.2-1) Direct Bilirubin 0.5 mg/dl (0-0.2) Aspartate Amino Transf (AST/SGOT) 36 U/L (15-37) Alanine Aminotransferase (ALT/SGPT) 26 U/L (12-78) Alkaline Phosphatase 242 U/L (45-117) Total Protein 7.4 gm/dl (6.4-8.2) Albumin 3.4 gm/dl (3.4-5.0) Lipase 126 U/L (73-393) Bedside Lactic Acid Venous 2.62 mmol/L (0.90-1.70) Lactic Acid Level 1.7 mmol/L (0.4-2.0) Test 10/01/17 10:06 White Blood Count 17.19 K/uL (4.8-10.8) Red Blood Count 3.99 M/uL (4.7-6.1) Hemoglobin 12.8 g/dL (14.0-18.0) Hematocrit 37.7 % (42-52) Mean Corpuscular Volume 94.5 fL (80-100) Mean Corpuscular Hemoglobin 32.1 pg (25-34) Mean Corpuscular Hemoglobin Concent 34.0 g/dl (32-36) Platelet Count 133 K/uL (130-400) Mean Platelet Volume 11.9 fL (7.4-10.4) Neutrophils (%) (Auto) 85.5 % Lymphocytes (%) (Auto) 4.5 % Monocytes (%) (Auto) 9.4 % Eosinophils (%) (Auto) 0.1 % Basophils (%) (Auto) 0.1 % Neutrophils # (Auto) 14.71 K/uL (1.4-6.5) Lymphocytes # (Auto) 0.78 K/uL (1.2-3.4) Monocytes # (Auto) 1.61 K/uL (0.11-0.59) Eosinophils # (Auto) 0.01 K/uL (0-0.5) Basophils # (Auto) 0.01 K/uL (0-0.2) RDW Standard Deviation 47.5 fL (36.4-46.3) RDW Coefficient of Variation 13.7 % (11.5-14.5) Immature Granulocyte % (Auto) 0.4 % Immature Granulocyte # (Auto) 0.07 K/uL (0.00-0.02) Anion Gap 6.0 mmol/L (3-11) Est Creatinine Clear Calc Drug Dose 50.7 ml/min Estimated GFR () 75.2 Estimated GFR (Non- 64.9 BUN/Creatinine Ratio 21.0 (10-20) Calcium Level 8.3 mg/dl (8.5-10.1) Magnesium Level 2.2 mg/dl (1.8-2.4) Date/Time Source Procedure Growth Status 09/30/17 08:15 Blood Blood Culture Pending Received 10/01/17 12:15 Urine , Clean Catch Urine Culture Pending Received Last 24 Hours Test 09/30/17 12:28 10/01/17 10:06 Lactic Acid Level 1.7 mmol/L White Blood Count 17.19 K/uL Red Blood Count 3.99 M/uL Hemoglobin 12.8 g/dL Hematocrit 37.7 % Mean Corpuscular Volume 94.5 fL Mean Corpuscular Hemoglobin 32.1 pg Mean Corpuscular Hemoglobin Concent 34.0 g/dl Platelet Count 133 K/uL Mean Platelet Volume 11.9 fL Neutrophils (%) (Auto) 85.5 % Lymphocytes (%) (Auto) 4.5 % Monocytes (%) (Auto) 9.4 % Eosinophils (%) (Auto) 0.1 % Basophils (%) (Auto) 0.1 % Neutrophils # (Auto) 14.71 K/uL Lymphocytes # (Auto) 0.78 K/uL Monocytes # (Auto) 1.61 K/uL Eosinophils # (Auto) 0.01 K/uL Basophils # (Auto) 0.01 K/uL RDW Standard Deviation 47.5 fL RDW Coefficient of Variation 13.7 % Immature Granulocyte % (Auto) 0.4 % Immature Granulocyte # (Auto) 0.07 K/uL Sodium Level 137 mmol/L Potassium Level 3.6 mmol/L Chloride Level 105 mmol/L Carbon Dioxide Level 26 mmol/L Anion Gap 6.0 mmol/L Blood Urea Nitrogen 22 mg/dl Creatinine 1.05 mg/dl Est Creatinine Clear Calc Drug Dose 50.7 ml/min Estimated GFR () 75.2 Estimated GFR (Non- 64.9 BUN/Creatinine Ratio 21.0 Random Glucose 106 mg/dl Calcium Level 8.3 mg/dl Magnesium Level 2.2 mg/dl Assessment & Plan 86 yo M presents with clinical picture consistent with sepsis 2/2 UTI with acute urinary retention. 1. Sepsis 2/2 UTI-resuscitated. Cont ceftriaxone. No outpatient or inpatient culture was performed. Repeat today, however, pt has been on abx for 24 hours at this time. Will likely continue with Omnicef as outpatient for 7-10 days. Cont Warren on discharge per Urology recs with follow-up in office next week. 2. Leukocytosis-poss related to infection. Danitza from 1K to 17K, remains afebrile and stable. No baseline available for comparison in the records. Cont to monitor. 3. Acute urinary retention-likely 2/2 UTI. Plan as above. 4. YONAS likely related to post-obstructive issues and/or prerenal azotemia- resolved after Warren placement. 5. Falls at home-likely related to infection as patient is very functional at baseline. PT/OT 6. Syncope likely related to orthostasis with infection as this is his history and patient felt bad just prior to and was changing positions just after dinner when this occurred. Follows with [facility]ULE[facility] barry and has implantable loop recorder in place. In the past this has been interrogated with syncope and been unremarkable for arrhythmia. No echo on file so will order one now for completion. No murmur was heard on exam and pt has no h/o cardiac disease. 7. Hypothyroidism-cont home dose Synthroid 8. Gout-cont daily allopurinol DVT proph-heparin Full Code Dispo-transfer to Med/Surg Jany Bermudez DO [facility] Hospitalist Consultants: [facility] Current Inpatient Medications: Current Inpatient Medications Medications (Trade) Dose Ordered Sig/Nataly Route Start Time Stop Time Status Last Admin Dose Admin Miscellaneous (Iv Fluids Completed) 1 ea PRN PRN N/A 09/30/17 10:30 09/30/18 10:29 Heparin Sodium (Porcine) (Heparin Sq 5000 Unit/0.5ml) 5,000 unit Q8 SQ 09/30/17 14:00 10/30/17 13:59 10/01/17 06:31 5,000 UNIT Acetaminophen (Tylenol Tab) 650 mg Q4H PRN PO 09/30/17 10:45 10/30/17 10:44 Ondansetron HCl (Zofran Inj) 4 mg Q6H PRN IV 09/30/17 10:45 10/30/17 10:44 Polyethylene (Miralax Powder Packet) 17 gm DAILY PRN PO 09/30/17 10:45 10/30/17 10:44 Ceftriaxone Sodium 1 gm/ Dextrose 50 ml @ 100 mls/hr Q24H IV 09/30/17 12:00 10/10/17 11:59 09/30/17 12:23 100 MLS/HR Allopurinol (Zyloprim Tab) 100 mg DAILY PO 10/01/17 09:00 10/31/17 08:59 10/01/17 08:36 100 MG Levothyroxine Sodium (Synthroid Tab) 50 mcg DAILYBB PO 10/01/17 06:30 10/31/17 06:29 10/01/17 06:33 50 MCG Simvastatin (Zocor Tab) 20 mg QPM PO 09/30/17 21:00 10/30/17 20:59 09/30/17 20:45 20 MG
[2017-10-02] VITALS (7 sets, daily range): BP systolic 102–135; BP diastolic 52–85; PULSE 57–73; TEMP 36.3–36.9; O2SAT 95–99
--- NOTE | 2017-10-02 | NUR ---
A: Patient resting in bed at this time. assessment unchanged. NSR on the monitor. Call kruger in reach
--- NOTE | 2017-10-02 04:00 | NUR ---
A: Patient resting in bed at this time. Assessment unchanged. NSR on the monitor. call kruger in reach. Will continue to monitor.
[2017-10-02] MEDS: LEVOTHYROXINE 50 MCG TAB PO SCH (06:20)
[2017-10-02 06:39] LABS: BASO % 0.1 %; BASO ABS # 0.02 K/uL (0-0.2); EOS % 1.7 %; EOS ABS # 0.23 K/uL (0-0.5); HEMATOCRIT 39.2 % (42-52); HEMOGLOBIN 13.5 g/dL (14.0-18.0); IG# 0.03 K/uL (0.00-0.02); LYMPH % 7.1 %; LYMPH ABS # 0.99 K/uL (1.2-3.4); MEAN CELL VOLUME 94.2 fL (80-100); MEAN CORPUSCULAR HEMOGLOBIN 32.5 pg (25-34); MEAN CORPUSCULAR HGB CONC 34.4 g/dl (32-36); MEAN PLATELET VOLUME 11.2 fL (7.4-10.4); MONO % 8.7 %; MONO ABS # 1.21 K/uL (0.11-0.59); NEUT % 82.2 %; NEUT ABS # 11.37 K/uL (1.4-6.5); PLATELET COUNT 162 K/uL (130-400); RED CELL DISTRIBUTION WIDTH CV 13.6 % (11.5-14.5); RED CELL DISTRIBUTION WIDTH SD 46.6 fL (36.4-46.3); WHITE BLOOD COUNT 13.85 K/uL (4.8-10.8)
[2017-10-02 07:10] LABS: CALCIUM 8.7 mg/dl (8.5-10.1); CREATININE 0.9 mg/dl (0.60-1.40); POTASSIUM 3.9 mmol/L (3.5-5.1)
[2017-10-02] MEDS: ALLOPURINOL 100 MG TAB PO SCH (07:49)
[2017-10-02] MEDS ORDERED: ENOXAPARIN 40 MG/0.4 ML SYR SQ SCH (09:00)
[2017-10-02] MEDS: CEFTRIAXONE SOD INJ 1 GM in DEXTROSE 5% ADD-VANTAGE 50ML 50 ML IV SCH (11:35)
--- NOTE | 2017-10-02 12:42 | Progress Note ---
Subjective Date of Service: Oct 02, 2017. Subjective Pt evaluation today including: conversation w/ patient, physical exam, chart review Arshad in place. Urine clear. Minimal pain with arshad. Cr improving. Now 0.9 WBC 13 Blood cx: No growth. Urine cx: Low colony count. No fevers. No chills. No nausea. No vomitting. Problem List Medical Problems: (1) PNA (pneumonia) Status: Acute Review of Systems All Other Systems: Reviewed and Negative Objective Vital Signs Date Time Temp Pulse Resp B/P (MAP) Pulse Ox O2 Delivery O2 Flow Rate FiO2 10/02/17 11:18 36.9 66 18 116/67 (83) 95 Room Air 10/02/17 08:00 Room Air 10/02/17 07:41 36.5 60 18 113/66 (82) 97 Room Air 10/02/17 05:04 36.3 57 21 102/52 (69) 95 Room Air 10/02/17 04:00 Room Air 10/02/17 00:00 Room Air 10/01/17 23:23 36.3 63 21 113/70 (84) 96 Room Air 10/01/17 20:00 Room Air 10/01/17 18:58 36.3 83 16 106/67 (80) 95 10/01/17 16:00 Room Air 10/01/17 14:50 36.4 64 18 97/54 (68) 97 Room Air Physical Exam General Appearance: no apparent distress Respiratory/Chest: chest non-tender Cardiovascular: regular rate, rhythm Abdomen: normal bowel sounds, non tender Neurologic/Psychiatric: oriented x 3 Comments: Urine clear Laboratory Results Last 24 Hours Test 10/02/17 06:22 White Blood Count 13.85 K/uL Red Blood Count 4.16 M/uL Hemoglobin 13.5 g/dL Hematocrit 39.2 % Mean Corpuscular Volume 94.2 fL Mean Corpuscular Hemoglobin 32.5 pg Mean Corpuscular Hemoglobin Concent 34.4 g/dl Platelet Count 162 K/uL Mean Platelet Volume 11.2 fL Neutrophils (%) (Auto) 82.2 % Lymphocytes (%) (Auto) 7.1 % Monocytes (%) (Auto) 8.7 % Eosinophils (%) (Auto) 1.7 % Basophils (%) (Auto) 0.1 % Neutrophils # (Auto) 11.37 K/uL Lymphocytes # (Auto) 0.99 K/uL Monocytes # (Auto) 1.21 K/uL Eosinophils # (Auto) 0.23 K/uL Basophils # (Auto) 0.02 K/uL RDW Standard Deviation 46.6 fL RDW Coefficient of Variation 13.6 % Immature Granulocyte % (Auto) 0.2 % Immature Granulocyte # (Auto) 0.03 K/uL Sodium Level 137 mmol/L Potassium Level 3.9 mmol/L Chloride Level 106 mmol/L Carbon Dioxide Level 29 mmol/L Anion Gap 2.0 mmol/L Blood Urea Nitrogen 21 mg/dl Creatinine 0.90 mg/dl Est Creatinine Clear Calc Drug Dose 59.1 ml/min Estimated GFR () 90.6 Estimated GFR (Non- 78.2 BUN/Creatinine Ratio 23.4 Random Glucose 97 mg/dl Calcium Level 8.7 mg/dl Assessment and Plan (1) Urinary retention (2) UTI (urinary tract infection) Arshad in place. Draining adequately. Continue abx x7-10 days. F/U in office for voiding trial in 7 days. Will consider medical therapy as an outpatient.
--- NOTE | 2017-10-02 13:30 | NUR ---
A note: Pt. to room 452 via wheel chair. VS wnls. Lungs clear. Abdomen soft +BS passing gas. Last BM 09/29. Pedal pulses palpable. No open areas noted. He does have a floey catheter, and is to go home with it and follow up with Urology after discharge. Call kruger within reach.
[2017-10-02] MEDS ORDERED: CEFD300C3 PO (14:25)
--- NOTE | 2017-10-02 14:30 | Discharge Summary ---
Discharge Summary Date of Service Oct 02, 2017. Discharge Summary Admission Date: Oct 01, 2017 at 11:52 Discharge Date: Oct 02, 2017 Discharge Disposition: Home with services Principal Diagnosis: Sepsis 2/2 UTI Leukocytosis Acute urinary retention YONAS likely related to post-obstructive issues and/or prerenal azotemia-resolved Falls at home Syncope 2/2 orthostasis Hypothyroidism Gout Procedures: None. Vaccinations: None. Consultations: Urology-[facility] Pending Studies/Follow-Up: see instructions below. Medication Reconciliation New Medications: Cefdinir (Cefdinir) 300 Mg Cap 300 MG PO BID for 7 Days, #14 CAP Continued Medications: Allopurinol (Zyloprim) 100 Mg Tab 100 MG PO DAILY Levothyroxine Sodium (Synthroid) 50 Mcg Tab 1 TAB PO DAILY for 30 Days, #30 TAB 5 Refills Simvastatin (Zocor) 20 Mg Tab 20 MG PO QPM Admission Information HPI (per Admitting provider): 86 yo M presents with progressive weakness and acute urinary retention. He reports difficulty urinating since Mon (4 days ago), denies dysuria, flank pain or fevers but reports some chills this morning. He was feeling like he had a UTI and called his PCP who ordered a urine sample that looked infected. No culture is available at this time. The patient was scheduled to followup this morning but came to the ER instead. Family reports that he is progressively more weak and was falling at home. They also report that he passed out on night after dinner when trying to arise out of a chair. reports that this happens to him whenever he gets an infection. For example, they went to [employer] in Jul 2017 and he had bronchitis and suffered a syncopal episode then , also. He is under the care of Dr. Jorgensen and has a loop recorder in place with no abnormalities detected to date. At baseline, he works out at the [employer] three times per week for an hour, and ambulates without using an assistive device. ROS is otherwise negative. Physical Exam (per Admitting): General Appearance: WD/WN, no apparent distress Head: normocephalic, atraumatic Eyes: normal inspection, PERRL, sclerae normal ENT: pharynx normal, + pertinent finding ([place]-uses hearing aids, very dry mucous membranes) Neck: supple, no adenopathy, trachea midline Respiratory/Chest: lungs clear, normal breath sounds, no respiratory distress, no accessory muscle use Cardiovascular: no edema, no gallop, no JVD, no murmur, normal peripheral pulses, + tachycardia (reg rhythm) Abdomen/GI: normal bowel sounds, non tender, soft Back: normal inspection, no CVA tenderness Extremities/Musculoskelatal: normal inspection, no pedal edema, normal range of motion Neurologic/Psych: skidder runner II-XII nml as tested, no motor/sensory deficits, alert , normal mood/affect, oriented x 3 Skin: normal color, warm/dry, no rash Hospital Course In the ER the patient was noted to be afebrile with stable vital signs. He had a distended bladder and arshad catheter was placed with 2L return. Lactate was elevated and his urinalysis suggested infection. His white count was noted to be 1. He was He was given Levaquin and was admitted and switched to ceftriaxone, which he tolerated well despite being PCN-allergic. He continued to improve after Arshad placement and Urology was consulted. Based on the amount of retention, this suggested a chronic process, however in the setting of falls at home and recent syncope, an alpha constantine was not immediately started. Cystoscopy as outpatient was also though helpful to further evaluate his bladder outlet. He was instructed to leave the Arshad in for 1 week and follow-up with Urology for an outpatient trial of void. He was discharged with the Arshad in place. On day of discharge he was hemodynamically stable and afebrile. He was mentating and ambulating at baseline. His abx was switched to Cefdinir as no outpatient or inpatient culture was reliably drawn. Although one was done, it was done 24 hours after initial antibiotics were started. Physical exam was unremarkable and he was discharged in stable condition with close outpatient PCP and Urology follow-up. Of note, no events were noted on telemetry after his syncopal episode earlier in the week. He will follow-up with Dr. Jorgensen in for interrogation of his loop recorder. Total time spent on discharge = 60 minutes This includes examination of the patient, discharge planning, medication reconciliation, and communication with other providers. Discharge Instructions [facility] [address] [place] [address] Discharge Medical Patient Name: Jose Oh Unit Number: [id number] Date of : 1930 Patient Status: Admitted Inpatient Attending Doctor: Jany Bermudez DO DI: Medical v4 Discharge Instructions Date of Service Oct 02, 2017. Admission Reason for Admission: UTI Discharge Discharge Diagnosis / Problem: sepsis 2/2 UTI Discharge Goals Goal(s): Prevent Disease Progression Activity Recommendations Activity Limitations: per Instructions/Follow-up section . Instructions / Follow-Up Instructions / Follow-Up Please continue all medications as instructed. You will be going home with Home Health services for continued physical and occupational therapy until goals are met. You will need to follow-up with Dr. Vanegas at the [facility] Urology office in 7 days for removal of the catheter and for a trial of void. You will need a one week follow-up with your primary care provider as a follow- up of this hospitalization. It was a pleasure taking care of you! Call if you have any questions or problems. You can reach a [facility] hospitalist on duty at [facility] 24 hours a day by calling [phone]. Take care of yourself. Jany Bermudez DO [facility] Hospitalist Current Hospital Diet Patient's current hospital diet: Regular Diet Discharge Diet Recommended Diet: Regular Diet Procedures Procedures Performed: None. Pending Studies Studies pending at discharge: yes List of pending studies: Final blood and urine cultures pending at [facility] with preliminary readings negative. Medical Emergencies . Who to Call and When: Medical Emergencies: If at any time you feel your situation is an emergency, please call 911 immediately. . Non-Emergent Contact Non-Emergency issues call your: Primary Care Provider . . "Provider Documentation" section prepared by Jany Bermudez. . VTE Core Measure Inpt VTE Proph given/why not?: Enoxaparin (Lovenox)SQ Additional Copies To Ha Rain MD
--- NOTE | 2017-10-02 15:10 | NUR ---
Case Management- Received notification that patient would need home health on discharge. Met with patient and in room. Spoke with patient and spouse about nursing and physical therapy per patient and they are only interested in the physical therapy. Patient and spouse chose [facility]. Spoke with dick at [facility] she is aware of referral they will call patient and schedule a time tomorrow. Faxed referral face sheet h&p and discharge to [facility]. CM following
[2018-01-11] MEDS ORDERED: MISC-573 (11:03)
[2018-01-11] MEDS ORDERED: MCRK20 PO (17:01)
[2018-01-25] MEDS ORDERED: CIPR-304 PO (15:43)
[2018-01-25] MEDS ORDERED: SIMV20TA5 PO (15:44)
[2018-01-30] MEDS ORDERED: ACET300T3 PO (08:25)
== END 2017-10-02 15:30 | disposition home or self-care (01) | DRG 872 ==
LOC: C.EDB 07:49 → C.MED 10:05 → ENRESERV 10:44 → OBSVTOIN 10-01 11:52 → ENRESERV 10-02 11:47 → C.MS4W 10-02 13:21
PROVIDERS: ADMIT Hospitalist; ATTEND Hospitalist
DX: A41.9 Sepsis, unspecified organism (principal); N39.0 Urinary tract infection, site not specified; N17.9 Acute kidney failure, unspecified; R33.9 Retention of urine, unspecified; R29.6 Repeated falls; I95.1 Orthostatic hypotension; N40.1 Benign prostatic hyperplasia with lower urinary tract symptoms; E78.5 Hyperlipidemia, unspecified; M10.9 Gout, unspecified; Z79.899 Other long term (current) drug therapy

== ENCOUNTER 2018-01-07 22:39 | Inpatient (IN) | payer OTHER, MEDICARE ==
[~2018-01-07] VITALS: Ht 172.7 cm; Wt 68.2 kg
[~2018-01-07 22:39] MED LIST: ALLO100T PO; CEFD300C3 PO; LEVO50TA PO; SIMV20TA2 PO
[2018-01-07] MEDS ORDERED: SULF800T23 PO (23:01)
[2018-01-07] MEDS ORDERED: FINA5TAB PO (23:01)
[2018-01-07] MEDS ORDERED: TAMS0.4C38 PO (23:01)
[2018-01-07 23:22] LABS: BASO % 0.1 %; BASO ABS # 0.01 K/uL (0-0.2); EOS % 1.1 %; EOS ABS # 0.09 K/uL (0-0.5); HEMATOCRIT 40.1 % (42-52); HEMOGLOBIN 13.9 g/dL (14.0-18.0); IG# 0.02 K/uL (0.00-0.02); LYMPH % 7.2 %; LYMPH ABS # 0.57 K/uL (1.2-3.4); MEAN CELL VOLUME 90.7 fL (80-100); MEAN CORPUSCULAR HEMOGLOBIN 31.4 pg (25-34); MEAN CORPUSCULAR HGB CONC 34.7 g/dl (32-36); MEAN PLATELET VOLUME 10.9 fL (7.4-10.4); MONO % 4.6 %; MONO ABS # 0.36 K/uL (0.11-0.59); NEUT % 86.7 %; NEUT ABS # 6.84 K/uL (1.4-6.5); PLATELET COUNT 153 K/uL (130-400); RED CELL DISTRIBUTION WIDTH CV 13.9 % (11.5-14.5); RED CELL DISTRIBUTION WIDTH SD 46.2 fL (36.4-46.3); WHITE BLOOD COUNT 7.89 K/uL (4.8-10.8)
[2018-01-07 23:47] LABS: ALBUMIN 3.3 gm/dl (3.4-5.0); ALT/SGPT 97 U/L (12-78); AST/SGOT 132 U/L (15-37); BLOOD UREA NITROGEN 15 mg/dl (7-18); CALCIUM 8.8 mg/dl (8.5-10.1); CARBON DIOXIDE 24 mmol/L (21-32); CREATININE 1.37 mg/dl (0.60-1.40); GLUCOSE 109 mg/dl (70-99); LIPASE 106 U/L (73-393); POTASSIUM 3.9 mmol/L (3.5-5.1); SODIUM 132 mmol/L (136-145)
[2018-01-07 23:52] LABS: ALKALINE PHOSPHATASE 158 U/L (45-117); TOTAL PROTEIN 7.3 gm/dl (6.4-8.2)
[2018-01-07] MEDS ORDERED: SODIUM CHLORIDE 0.9% 1000ML 1,000 ML IV STA (23:53)
--- NOTE | 2018-01-08 00:22 | EMERGENCY ROOM VISIT NOTE ---
History Report prepared by Pierre: Amy Blake Under the Supervision of: Dr. Osmar Lugo M.D. First contact with patient: 22:45 Chief Complaint: FEVER Stated Complaint: FEVER,SHAKING History of Present Illness The patient is a 87 year old male who presents to the Emergency Room with complaints of persistent fevers that began last night. His reports that the patient was recently treated for an enlarged bladder and was later treated for a urinary tract infection. The patient self catheterizes, noting that he has been urinating less than normal. states that tonight the patient was staggering while walking to the bathroom, noting that helped him back on the bed and he began shaking uncontrollably. He reports that he has not eaten since his symptoms began, noting that he has become progressively weaker and had a fever of 100.1 degrees about 4 hours ago. The patient had similar symptoms with his urinary tract infection, but notes it was notes the shaking was not as severe. He took Tylenol to relieve his symptoms, which seemed to reduce his fever. The patient denies any coughing, congestion, or shortness of breath. Source of History: patient Onset: last night Position: other (diffused throughout body) Quality: other (fevers) Timing: other (persistent) Associated Symptoms: No cough, No SOB Note: Associated symptoms include: urinating less, progressively weaker, and had a fever of 100.1 degrees staggering while walking to the bathroom, noting that helped him back on the bed and he began shaking uncontrollably. Patient denies congestion. Review of Systems See HPI for pertinent positives and negatives. A total of ten systems were reviewed and were otherwise negative. Past Medical & Surgical Medical Problems: (1) Ambulatory dysfunction (2) Febrile illness, acute (3) Gout (4) Hyperlipidemia (5) Hypothyroidism (6) No chronic diseases present (7) Sepsis secondary to UTI (8) Status post placement of implantable loop recorder (9) Urinary retention (10) UTI (urinary tract infection) Surgical Problems: (1) S/P appy (2) S/P hernia repair Family History FH: diabetes mellitus MOTHER FH: heart attack FATHER, Onset:60 years & older Social History Smoking Status: Never Smoker Drug Use: none Marital Status: Housing Status: lives with family Occupation Status: retired Current/Historical Medications Scheduled Allopurinol (Zyloprim), 100 MG PO DAILY Finasteride (Proscar), 5 MG PO DAILY Levothyroxine Sodium (Synthroid), 50 MCG PO DAILY Simvastatin (Zocor), 20 MG PO QPM Sulfa/Trimethoprim (Bactrim Ds 800MG/160MG), Unknown Dose PO BID Tamsulosin Hcl (Flomax), 0.4 MG PO HS Allergies Coded Allergies: Penicillins (Unverified Allergy, Unknown, RASH, 01/07/18) Physical Exam Vital Signs Date Time Temp Pulse Resp B/P (MAP) Pulse Ox O2 Delivery O2 Flow Rate FiO2 01/08/18 02:09 75 01/08/18 02:06 75 109/60 01/08/18 00:55 75 124/54 85 128/60 101 119/50 01/07/18 23:04 92 01/07/18 22:41 36.6 93 20 154/69 92 Room Air Physical Exam GENERAL: Awake, alert, fatigued-appearing, in no distress HENT: Dry mucous membranes. Normocephalic, atraumatic. Oropharynx unremarkable. EYES: Normal conjunctiva. Sclera non-icteric. NECK: Supple. No nuchal rigidity. FROM. No JVD. RESPIRATORY: Clear to auscultation. CARDIAC: Regular rate, normal rhythm. Extremities warm and well perfused. Pulses equal. ABDOMEN: Soft, non-distended. No tenderness to palpation. No rebound or guarding. No masses. RECTAL: Deferred. MUSCULOSKELETAL: Chest examination reveals no tenderness. The back is symmetrical on inspection without obvious abnormality. There is no CVA tenderness to palpation. No joint edema. LOWER EXTREMITIES: 4/5 strength in all extremities. DTR is normal. Calves are equal size bilaterally and non-tender. No edema. No discoloration. NEURO: Normal sensorium. No sensory or motor deficits noted. SKIN: No rash or jaundice noted. Medical Decision & Procedures Laboratory Results 01/07/18 22:55 Red Blood Count 4.42, Mean Corpuscular Volume 90.7, Mean Corpuscular Hemoglobin 31.4, Mean Corpuscular Hemoglobin Concent 34.7, Mean Platelet Volume 10.9, Neutrophils (%) (Auto) 86.7, Lymphocytes (%) (Auto) 7.2, Monocytes (%) (Auto) 4.6, Eosinophils (%) (Auto) 1.1, Basophils (%) (Auto) 0.1, Neutrophils # (Auto) 6.84, Lymphocytes # (Auto) 0.57, Monocytes # (Auto) 0.36, Eosinophils # (Auto) 0.09, Basophils # (Auto) 0.01 01/07/18 22:55 Test 01/07/18 22:55 01/07/18 23:11 01/07/18 23:20 01/07/18 23:45 White Blood Count 7.89 K/uL (4.8-10.8) Red Blood Count 4.42 M/uL (4.7-6.1) Hemoglobin 13.9 g/dL (14.0-18.0) Hematocrit 40.1 % (42-52) Mean Corpuscular Volume 90.7 fL (80-100) Mean Corpuscular Hemoglobin 31.4 pg (25-34) Mean Corpuscular Hemoglobin Concent 34.7 g/dl (32-36) Platelet Count 153 K/uL (130-400) Mean Platelet Volume 10.9 fL (7.4-10.4) Neutrophils (%) (Auto) 86.7 % Lymphocytes (%) (Auto) 7.2 % Monocytes (%) (Auto) 4.6 % Eosinophils (%) (Auto) 1.1 % Basophils (%) (Auto) 0.1 % Neutrophils # (Auto) 6.84 K/uL (1.4-6.5) Lymphocytes # (Auto) 0.57 K/uL (1.2-3.4) Monocytes # (Auto) 0.36 K/uL (0.11-0.59) Eosinophils # (Auto) 0.09 K/uL (0-0.5) Basophils # (Auto) 0.01 K/uL (0-0.2) RDW Standard Deviation 46.2 fL (36.4-46.3) RDW Coefficient of Variation 13.9 % (11.5-14.5) Immature Granulocyte % (Auto) 0.3 % Immature Granulocyte # (Auto) 0.02 K/uL (0.00-0.02) Anion Gap 11.0 mmol/L (3-11) Est Creatinine Clear Calc Drug Dose 38.0 ml/min Estimated GFR () 54.1 Estimated GFR (Non- 46.7 BUN/Creatinine Ratio 11.2 (10-20) Calcium Level 8.8 mg/dl (8.5-10.1) Magnesium Level 1.9 mg/dl (1.8-2.4) Total Bilirubin 0.7 mg/dl (0.2-1) Direct Bilirubin 0.3 mg/dl (0-0.2) Aspartate Amino Transf (AST/SGOT) 132 U/L (15-37) Alanine Aminotransferase (ALT/SGPT) 97 U/L (12-78) Alkaline Phosphatase 158 U/L (45-117) Troponin I < 0.015 ng/ml (0-0.045) Total Protein 7.3 gm/dl (6.4-8.2) Albumin 3.3 gm/dl (3.4-5.0) Lipase 106 U/L (73-393) Bedside Lactic Acid Venous 2.31 mmol/L (0.90-1.70) Urine Color YELLOW Urine Appearance CLEAR (CLEAR) Urine pH 6.0 (4.5-7.5) Urine Specific [place] 1.015 (1.000-1.030) Urine Protein NEG (NEG) Urine Glucose (UA) NEG (NEG) Urine Ketones TRACE (NEG) Urine Occult Blood NEG (NEG) Urine Nitrite NEG (NEG) Urine Bilirubin NEG (NEG) Urine Urobilinogen NEG (NEG) Urine Leukocyte Esterase NEG (NEG) Influenza Type A (RT-PCR) Neg for Influ A (NEG) Influenza Type B (RT-PCR) Neg for Influ B (NEG) Medications Administered Medications (Trade) Dose Ordered Sig/Nataly Route Start Time Stop Time Status Last Admin Dose Admin Sodium Chloride 1,000 ml @ 999 mls/hr Q1H1M STAT IV 01/07/18 23:53 01/08/18 00:53 DC 01/07/18 23:53 999 MLS/HR Sodium Chloride 1,000 ml @ 999 mls/hr Q1H1M STAT IV 01/08/18 01:34 01/08/18 02:34 DC 01/08/18 01:34 999 MLS/HR ECG Per My Interpretation Indication: weakness Rate (beats per minute): 89 Rhythm: normal sinus (with sinus arrythmia) Findings: no acute ischemic change, other (normal sinus) ED Course 2045: The patient was evaluated in room B10. A complete history and physical exam was performed. Medical Decision I reviewed the patient's past medical history, medications, and the nursing notes as described above. Differential diagnosis: Etiologies such as viral syndrome, otitis, pharyngitis, pneumonia, influenza, meningitis, urinary tract infection, sepsis, bacteremia, as well as others were entertained. The patient is an 87-year-old gentleman with a past medical history of urinary retention secondary to UTIs who presents emergency department with generalized weakness in the setting of fevers at home per hpi. On arrival, patient is fatigued appearing but no acute distress, afebrile stable vital signs. Patient appears clinically dry with dry cracked mucous membranes. On exam the patient is 4/5 strength in all extremities. DTRs within normal limits. Soft nontender nondistended. WBC within normal limits. LFTs marginally elevated. Lactate 2.3 in the setting of the patient's clinically dry appearance. UA negative for infection. Chest x-ray with no gross infiltrates. CT head unremarkable. Patient feeling improved after IV fluid hydration however still with generalized weakness unable to ambulate independently which is different from his baseline. Given this is reasonable to admit this elderly patient for further IV fluid hydration and possible PT evaluation and placement. [facility] for further management. Medication Reconcilliation Current Medication List: was personally reviewed by me Impression Primary Impression: Generalized weakness Additional Impression: Dehydration Scribe Attestation The scribe's documentation has been prepared under my direction and personally reviewed by me in its entirety. I confirm that the note above accurately reflects all work, treatment, procedures, and medical decision making performed by me. Departure Information Referrals Ha Rain MD (PCP) Forms HOME CARE DOCUMENTATION FORM, IMPORTANT VISIT INFORMATION Patient Instructions My [facility] Problem Qualifiers
[2018-01-08 00:26] LABS: INFLUENZA A PCR Neg for Influ A (NEG); INFLUENZA B PCR Neg for Influ B (NEG)
[2018-01-08] MEDS ORDERED: SODIUM CHLORIDE 0.9% 1000ML 1,000 ML IV STA (01:34)
[2018-01-08] MEDS ORDERED: ACETAMINOPHEN 325 MG TAB PO PRN (02:30)
[2018-01-08] MEDS ORDERED: ONDANSETRON INJ 2 MG/ML 2 ML VIAL IV PRN (02:30)
[2018-01-08] MEDS: SODIUM CHLORIDE 0.9% 1000ML 1,000 ML IV SCH ×3 (03:17→22:07)
--- NOTE | 2018-01-08 03:20 | HISTORY & PHYSICAL EXAMINATION ---
DATE OF ADMISSION: 01/07/2018 PRIMARY CARE PROVIDER: Dr. Rain. CHIEF COMPLAINT: Fever since Monday, very weak and tired today with inability to ambulate. HISTORY OF PRESENT COMPLAINT: He is an 87-year-old male with significant past medical history of hypothyroidism, hyperlipidemia, history of syncope, gout, benign prostatic hypertrophy that requires daily catheterization. Apparently, he has had fever on Monday and since then, he has not been eating or drinking enough and getting weak day by day. He does have some cough, but no other symptoms of shortness of breath and/or wheezing. He denies to have any abdominal pain, nausea or vomiting. He denies to have any problem with his urine and he has been doing self catheterization once a day. He does not have any bowel problem. He has been getting weaker day by day and today, he could hardly walk. He was almost about to fall whenever he was trying to go to the bathroom at home. He had a staggering gait as well. In the Emergency Room, his initial blood workup came out to be unremarkable, but again he was unstable on his feet to be sent home. PAST MEDICAL HISTORY: Acquired hypothyroidism, pure hyperlipidemia, history of syncope, gout, benign prostatic hypertrophy required daily catheterization. PAST SURGICAL HISTORY: Appendectomy as a child. FAMILY HISTORY: Nothing significant. SOCIAL HISTORY: He is . He lives with his . He is a former smoker and before this episode, he was ambulating normally. ALLERGIES: PENICILLIN. MEDICATIONS: He has been on sulfa, trimethoprim as directed. He took 1 dose last Monday, allopurinol 100 mg daily, Proscar 5 mg daily, levothyroxine 50 mcg daily, simvastatin 20 mg daily, and tamsulosin 0.4 mg daily. REVIEW OF SYSTEMS: Other system review unremarkable except those mentioned in history of present complaint. PHYSICAL EXAMINATION: GENERAL: On examination in the Emergency Room, he was not having any acute distress. He looked flushed without any apparent distress. VITAL SIGNS: Temperature 36.6, pulse 75, blood pressure 124/54 with standing and that went down to 119/50, saturation 92% on room air. HEENT: Unremarkable. NECK: Supple. No JVD, no bruit. CHEST: Clear to auscultate bilaterally. HEART: S1, S2 regular. ABDOMEN: Soft, benign, nontender, no organomegaly. Renal angles were not tender, hypogastrium not tender. Bowel sounds present. EXTREMITIES: Negative for any edema. MUSCULOSKELETAL: Did not show any acute arthritis. CENTRAL NERVOUS SYSTEM: He was alert, awake, oriented x3, generally weak, but no focal neurological deficit. LABORATORY DATA: Noted today white count was 7.89, H&H 13.9/40.1, platelet was 153. Sodium 132, potassium 3.9, chloride 97, carbon dioxide 24, BUN 15, creatinine 1.37, random glucose 109. Lactic acid was 2.31. Elevated AST 132, ALT 97, alkaline phosphatase 158. UA examination unremarkable. Influenza A and B negative. Chest x-ray and CAT scan unremarkable. IMPRESSION AND PLAN: 1. Febrile illness. The patient has been having fever of 101 that was on Monday. No acute symptoms of flu and flu has been negative, getting generalized weak and tired, mostly from the flu, not from the viral illness. 2. Ambulatory dysfunction, likely secondary to viral illness. He has been unable to ambulate without a tendency to fall since this evening. He will get PT, OT evaluation. He may need placement depending on that evaluation. 3. Mild dehydration. He has not been eating or drinking enough fluid. We will give a small amount of IV fluid while in the hospital and monitor PRP. 4. Prostatic hypertrophy, required daily catheterization. We will continue to do that while in the hospital. Continue with tamsulosin and Flomax. 5.Elevated Liver Enzymes;Ne finding,could be secondary to current viral illness, Alcohol use and or hepatitis.Will check hepatitis panel .Monitor. 6. Hyperlipidemia. Continue statin. 7. Gout. Continue with allopurinol. 8. Gastrointestinal prophylaxis with Maalox, Mylanta as needed and deep venous thrombosis prophylaxis, subcutaneous heparin. 8. Code status: He will be full code. In my clinical judgment, the beneficiary meets criteria as per CMS for 2 midnights' stay in the hospital. PAM
[2018-01-08 03:30] VITALS: BP 116/50; PULSE 77; TEMP 36.4; O2SAT 92; Ht 172.7 cm; Wt 68.2 kg
[2018-01-08] MEDS: LEVOTHYROXINE 50 MCG TAB PO SCH (06:17)
[2018-01-08] MEDS ORDERED: IV FLUIDS COMPLETED PRN (06:45)
--- NOTE | 2018-01-08 07:08 | DIAGNOSTIC IMAGING REPORT ---
HEAD CT NONCONTRAST CT DOSE: 691.05 mGy.cm HISTORY: weakness TECHNIQUE: Multiaxial CT images of the head were performed without the use of intravenous contrast. Automated exposure control was utilized for this study. A dose lowering technique was utilized adhering to the principles of ALARA. Comparison: None. Findings: The paranasal sinuses and mastoid air cells are clear. The calvarium and skull base are intact. There is no mass, hematoma, midline shift, acute infarct. White matter hypodensity is nonspecific but suggestive of microvascular ischemic change. The ventricles and sulci demonstrate mild age-related involutional changes. Impression: No acute intracranial abnormality. Atrophy and microvascular ischemic changes. Electronically signed by: Frantz Haney M.D. 01/08/2018 7:06 AM Dictated Date/Time: 01/08/2018 7:04 AM
[2018-01-08 07:09] LABS: INR 1.1 (0.9-1.1)
--- NOTE | 2018-01-08 07:26 | DIAGNOSTIC IMAGING REPORT ---
CHEST ONE VIEW PORTABLE HISTORY: Generalized abdominal pain. COMPARISON: Chest 09/30/2017. FINDINGS: Left basilar subsegmental atelectasis, unchanged. The lungs are otherwise clear. No pleural effusions. No pneumothorax. The heart is normal in size. IMPRESSION: No significant change compared to the prior study. No acute process. Electronically signed by: Frantz Haney M.D. 01/08/2018 7:25 AM Dictated Date/Time: 01/08/2018 7:23 AM
[2018-01-08 07:37] LABS: BASO % 0.2 %; BASO ABS # 0.01 K/uL (0-0.2); EOS % 0.2 %; EOS ABS # 0.01 K/uL (0-0.5); HEMATOCRIT 39.4 % (42-52); HEMOGLOBIN 13.7 g/dL (14.0-18.0); IG# 0.01 K/uL (0.00-0.02); LYMPH % 3.6 %; LYMPH ABS # 0.23 K/uL (1.2-3.4); MEAN CORPUSCULAR HEMOGLOBIN 31.6 pg (25-34); MEAN PLATELET VOLUME 10.4 fL (7.4-10.4); MONO % 5.9 %; MONO ABS # 0.38 K/uL (0.11-0.59); NEUT % 89.9 %; NEUT ABS # 5.77 K/uL (1.4-6.5); PLATELET COUNT 134 K/uL (130-400); RED CELL DISTRIBUTION WIDTH CV 13.9 % (11.5-14.5); RED CELL DISTRIBUTION WIDTH SD 46.5 fL (36.4-46.3); WHITE BLOOD COUNT 6.41 K/uL (4.8-10.8)
[2018-01-08 07:39] LABS: MEAN CORPUSCULAR HGB CONC 34.8 g/dl (32-36)
[2018-01-08 07:46] VITALS: BP 118/64; PULSE 78; TEMP 37.4; O2SAT 96
[2018-01-08] MEDS: ALLOPURINOL 100 MG TAB PO SCH (07:48)
[2018-01-08] MEDS: FINASTERIDE 5 MG TAB PO SCH (07:48)
[2018-01-08] MEDS: HEPARIN SOD 5000 UNIT/0.5 ML CARP SQ SCH ×2 (07:50→21:23)
[2018-01-08 07:55] LABS: ALBUMIN 2.9 gm/dl (3.4-5.0); CALCIUM 8.5 mg/dl (8.5-10.1); CREATININE 1.19 mg/dl (0.60-1.40); POTASSIUM 3.9 mmol/L (3.5-5.1)
[2018-01-08 08:00] LABS: TOTAL PROTEIN 6.3 gm/dl (6.4-8.2)
[2018-01-08 08:35] VITALS: TEMP 37.8
[2018-01-08 08:41] LABS: HEP C IGG 13 YRS+OLDER_RFLX NEG (NEG)
[2018-01-08 11:29] VITALS: TEMP 37.5
[2018-01-08 15:45] VITALS: BP 108/56; PULSE 73; TEMP 36.9; O2SAT 94
--- NOTE | 2018-01-08 19:55 | Progress Note ---
Progress Note Date of Service Jan 08, 2018. Progress Note Subjective: patient had difficulty with ambulation today with nursing staff. patient's reports that patient has trouble at home getting up from sitting to standing position and demonstrates a shuffling gait - she and patient denies Parkinson's disease. patient at home can walk up and down stairs. They also report that patient requires intermittent catheterization at home for urination. denies history of trauma to head or back General: no acute distress, verbal speaks in full sentences Neuro: awake and alert, no motor deficits when asked on leg extension and flexion and on ankle extension and flexion Neck: no JVD Heart:regular rate Abdomen: soft, nontender, + bowel sounds Extremities: no motor strength deficits when exam done as patient on the bed, no edema Ambulatory dysfunction - possibly worse with an unclear infection? vs Parkinsons ? "Physical Therapy notes Gait Description Wide ABEL Slow Ataxic Shuffle Gait Comment pt stands with knees locked and feet blocked, pt's feet sliding fwd d/t severe posterior lean/push, pt unaware he is doing this and unable to correct. The more I try to get pt's COG over his ABEL the more he pushes back. He was unable to ambulate and sat back down. With RW pt able to get COG closer to ABEL but still not good. He is MIN A of 2 to ambulate 8'. Ataxic, unsteady, LOB backward. " -Head CT: No acute intracranial abnormality. Atrophy and microvascular ischemic changes; Brain MRI ordered -B12 and folate normal, checking for RPR -patient has no headaches -monitor for fever as below Exacerbation of ambulatory dysfunction attributed to possible illness as patient 's family member reports 100.2 temperature at home, also a 100 F measured in the hospital. -This does not meet criteria for low grade fever -blood cultures sent on 01/07/18 -No acute symptoms of flu and flu has been negative Mild dehydration on hospital presentation -continue with IV fluids for now Prostatic hypertrophy -requires daily catheterization at home , continue as needed while in the hospital -continue with tamsulosin and Flomax -UA is negative Transaminitis -f/u hepatitis panel, trend LFTs Hyperlipidemia. Continue statin. Gout history. Continue with allopurinol. Gastrointestinal prophylaxis with Maalox, Mylanta as needed Deep venous thrombosis prophylaxis, subcutaneous heparin. Code status: full code Disposition: patient remains in hospital, possibly will need inpatient rehabilitation
[2018-01-08] MEDS: TAMSULOSIN HCL 0.4 MG CAP PO SCH (21:23)
[2018-01-08] MEDS: SIMVASTATIN 20 MG TAB PO SCH (21:23)
[2018-01-08] MEDS ORDERED: GADAVIST IV PRN (22:30)
--- NOTE | 2018-01-08 22:43 | DIAGNOSTIC IMAGING REPORT ---
MRI OF THE BRAIN COMBO CLINICAL HISTORY: Ataxia. COMPARISON STUDY: CT of the brain dated 01/07/2018. TECHNIQUE: MRI of the brain was performed utilizing various T1 and T2-weighted sequences in the axial, sagittal, and coronal planes. Contrast-enhanced sequences were acquired following the administration of 6.5 cc of Gadavist. FINDINGS: Brain parenchyma: There are age-related involutional changes noting mild subcortical and periventricular microangiopathic disease. There is no hemorrhage or mass effect. There is no restricted diffusion to suggest acute ischemia. No enhancing mass lesion is identified on the postcontrast images. Rose-white matter differentiation is preserved. No extra-axial fluid collection is seen. The cerebellar tonsils are normal in configuration. Ventricles, sulci, and cisterns: Prominent secondary to involutional change. Pituitary and sella: Unremarkable. Intracranial vasculature: Normal flow voids are maintained at the skull base. Orbits: The bony orbits are grossly intact. Orbital contents are normal in appearance noting bilateral ocular lens implants. Sinuses and mastoids: Clear. Calvarium: Unremarkable. Cervical cord: Partially visualized cervical spinal cord is normal in morphology and signal intensity. IMPRESSION: No acute intracranial abnormality. Electronically signed by: Gerard Plunkett M.D. 01/08/2018 10:41 PM Dictated Date/Time: 01/08/2018 10:39 PM
[2018-01-09] VITALS: BP 112/58; PULSE 71; TEMP 37.4; O2SAT 92
[2018-01-09] MEDS: LEVOTHYROXINE 50 MCG TAB PO SCH (05:59)
[2018-01-09 07:16] VITALS: BP 124/63; PULSE 72; TEMP 37; O2SAT 94
[2018-01-09 07:21] LABS: BASO % 0.3 %; BASO ABS # 0.02 K/uL (0-0.2); EOS ABS # 0.08 K/uL (0-0.5); HEMATOCRIT 39.2 % (42-52); HEMOGLOBIN 13.4 g/dL (14.0-18.0); IG# 0.02 K/uL (0.00-0.02); LYMPH ABS # 0.54 K/uL (1.2-3.4); MEAN CELL VOLUME 91.4 fL (80-100); MEAN CORPUSCULAR HEMOGLOBIN 31.2 pg (25-34); MEAN CORPUSCULAR HGB CONC 34.2 g/dl (32-36); MEAN PLATELET VOLUME 11.4 fL (7.4-10.4); MONO % 7.7 %; MONO ABS # 0.59 K/uL (0.11-0.59); NEUT % 83.7 %; NEUT ABS # 6.43 K/uL (1.4-6.5); PLATELET COUNT 129 K/uL (130-400); RED CELL DISTRIBUTION WIDTH CV 14.1 % (11.5-14.5); RED CELL DISTRIBUTION WIDTH SD 46.9 fL (36.4-46.3); WHITE BLOOD COUNT 7.68 K/uL (4.8-10.8)
[2018-01-09 07:48] LABS: ALBUMIN 2.6 gm/dl (3.4-5.0); CALCIUM 8.3 mg/dl (8.5-10.1); CREATININE 1.05 mg/dl (0.60-1.40); POTASSIUM 3.5 mmol/L (3.5-5.1)
[2018-01-09 07:51] LABS: TOTAL PROTEIN 5.7 gm/dl (6.4-8.2)
[2018-01-09] MEDS: ALLOPURINOL 100 MG TAB PO SCH (08:43)
[2018-01-09] MEDS: FINASTERIDE 5 MG TAB PO SCH (08:43)
[2018-01-09] MEDS: HEPARIN SOD 5000 UNIT/0.5 ML CARP SQ SCH ×2 (08:51→21:15)
[2018-01-09] MEDS: SODIUM CHLORIDE 0.9% 1000ML 1,000 ML IV SCH (08:53)
[2018-01-09 10:44] LABS: HEPATITIS A IGM TC 51813E NON-REACTIVE (NON-REACTIVE); HEPATITIS B CORE IGM TC51854R NON-REACTIVE (NON-REACTIVE)
[2018-01-09 15:11] VITALS: BP 96/57; PULSE 68; TEMP 36.7; O2SAT 96
--- NOTE | 2018-01-09 15:34 | Progress Note ---
Medicine Progress Note Date & Time of Visit: Jan 09, 2018 at 15:34 . Subjective Ongoing problems with urinary retention. Requiring straight caths q 6 hrs with residual volumes as high as 700 ml. No dysuria. No fever or chills. Feels stronger. No CP, cough, SOB. No nausea, vomiting, diarrhea. Able to ambulate more easily. . Objective Last 8 Hrs Date Time Temp Pulse Resp B/P (MAP) Pulse Ox O2 Delivery O2 Flow Rate FiO2 01/09/18 15:11 36.7 68 16 96/57 (70) 96 01/09/18 08:00 Room Air Physical Exam: General- lying in bed; no distress Lungs- clear to auscultation; no respiratory distress Cardiovascular- RRR; no gallop appreciated; no JVD; no pretibial edema Abdomen- + bowel sounds, soft, nontender Extremities- no cyanosis; no calf tenderness Neuro- alert, oriented; had some difficulty with serial 7's and months backwards ; no cogwheel rigidity Skin- warm & dry . Laboratory Results: Last 24 Hours Test 01/08/18 16:22 01/09/18 06:42 Erythrocyte Sedimentation Rate 23 mm/hr White Blood Count 7.68 K/uL Red Blood Count 4.29 M/uL Hemoglobin 13.4 g/dL Hematocrit 39.2 % Mean Corpuscular Volume 91.4 fL Mean Corpuscular Hemoglobin 31.2 pg Mean Corpuscular Hemoglobin Concent 34.2 g/dl Platelet Count 129 K/uL Mean Platelet Volume 11.4 fL Neutrophils (%) (Auto) 83.7 % Lymphocytes (%) (Auto) 7.0 % Monocytes (%) (Auto) 7.7 % Eosinophils (%) (Auto) 1.0 % Basophils (%) (Auto) 0.3 % Neutrophils # (Auto) 6.43 K/uL Lymphocytes # (Auto) 0.54 K/uL Monocytes # (Auto) 0.59 K/uL Eosinophils # (Auto) 0.08 K/uL Basophils # (Auto) 0.02 K/uL RDW Standard Deviation 46.9 fL RDW Coefficient of Variation 14.1 % Immature Granulocyte % (Auto) 0.3 % Immature Granulocyte # (Auto) 0.02 K/uL Sodium Level 133 mmol/L Potassium Level 3.5 mmol/L Chloride Level 101 mmol/L Carbon Dioxide Level 24 mmol/L Anion Gap 8.0 mmol/L Blood Urea Nitrogen 13 mg/dl Creatinine 1.05 mg/dl Est Creatinine Clear Calc Drug Dose 49.6 ml/min Estimated GFR () 74.7 Estimated GFR (Non- 64.4 BUN/Creatinine Ratio 12.5 Random Glucose 97 mg/dl Calcium Level 8.3 mg/dl Total Bilirubin 0.6 mg/dl Aspartate Amino Transf (AST/SGOT) 67 U/L Alanine Aminotransferase (ALT/SGPT) 93 U/L Alkaline Phosphatase 149 U/L Total Protein 5.7 gm/dl Albumin 2.6 gm/dl Globulin 3.1 gm/dl Albumin/Globulin Ratio 0.8 Date/Time Source Procedure Growth Status 01/08/18 16:29 Blood Blood Culture Pending Received 01/08/18 16:22 Blood Blood Culture Pending Received Assessment & Plan POSSIBLE UTI Started empiric treatment with TMP / sulfa for dysuria last week. UA negative at time of admission. Blood cultures negative. ? partially treated UTI. Not receiving any antibiotics at this time. Afebrile. Worsening urinary retention- consider prostatitis. Consult Urology. URINARY RETENTION Worsening symptoms requiring more frequent straight caths. Continue tamsulosin and finasteride. Consult Urology. AMBULATORY DYSFUNCTION Gait improving. Continue PT / OT. ELEVATED "LFT's" AST, ALT, alk phos slightly elevated; total bilirubin normal. Acute hepatitis profile negative. ? viral syndrome. Improving. Follow. GOUT Continue allopurinol. VTE PROPHYLAXIS SQ heparin. Ambulate. DISPOSITION Expected discharge to home. Internal Medicine follow-up with Dr. Rain. Urology follow-up with Dr. Llamas. . Current Inpatient Medications: Current Inpatient Medications Medications (Trade) Dose Ordered Sig/Nataly Route Start Time Stop Time Status Last Admin Dose Admin Acetaminophen (Tylenol Tab) 650 mg Q4H PRN PO 01/08/18 02:30 02/07/18 02:29 Ondansetron HCl (Zofran Inj) 4 mg Q6H PRN IV 01/08/18 02:30 02/07/18 02:29 Heparin Sodium (Porcine) (Heparin Sq 5000 Unit/0.5ml) 5,000 unit Q12H SQ 01/08/18 09:00 02/07/18 08:59 01/09/18 08:51 5,000 UNIT Allopurinol (Zyloprim Tab) 100 mg DAILY PO 01/08/18 09:00 02/07/18 08:59 01/09/18 08:43 100 MG Finasteride (Proscar Tab) 5 mg DAILY PO 01/08/18 09:00 02/07/18 08:59 01/09/18 08:43 5 MG Levothyroxine Sodium (Synthroid Tab) 50 mcg DAILYBB PO 01/08/18 06:30 02/07/18 06:29 01/09/18 05:59 50 MCG Simvastatin (Zocor Tab) 20 mg QPM PO 01/08/18 21:00 02/07/18 20:59 01/08/18 21:23 20 MG Tamsulosin HCl (Flomax Cap) 0.4 mg HS PO 01/08/18 21:00 02/07/18 20:59 01/08/18 21:23 0.4 MG Sodium Chloride 1,000 ml @ 100 mls/hr Q10H IV 01/08/18 03:30 02/07/18 03:29 01/09/18 08:53 100 MLS/HR Miscellaneous (Iv Fluids Completed) 1 ea PRN PRN N/A 01/08/18 06:45 01/08/19 06:44 Gadobutrol (Gadavist) 6.5 mmol UD PRN IV 01/08/18 22:30 01/12/18 22:29
[2018-01-09] MEDS: TAMSULOSIN HCL 0.4 MG CAP PO SCH (21:10)
[2018-01-09] MEDS: SIMVASTATIN 20 MG TAB PO SCH (21:11)
[2018-01-10 00:14] VITALS: BP 114/57; PULSE 72; TEMP 37.1; O2SAT 95
[2018-01-10] MEDS: LEVOTHYROXINE 50 MCG TAB PO SCH (06:08)
[2018-01-10 08:14] LABS: CALCIUM 8.1 mg/dl (8.5-10.1); CREATININE 0.88 mg/dl (0.60-1.40); POTASSIUM 3.1 mmol/L (3.5-5.1)
[2018-01-10] MEDS: ALLOPURINOL 100 MG TAB PO SCH (08:58)
[2018-01-10] MEDS: FINASTERIDE 5 MG TAB PO SCH (08:58)
[2018-01-10 08:59] VITALS: BP_SYST 107; BP_SYST 115; BP_SYST 117; BP_DIAS 48; BP_DIAS 53; BP_DIAS 60; PULSE 71; PULSE 85; PULSE 88; TEMP 37; O2SAT 92
[2018-01-10] MEDS: HEPARIN SOD 5000 UNIT/0.5 ML CARP SQ SCH ×2 (09:00→20:35)
[2018-01-10] MEDS: POTASSIUM CHLORIDE 20 MEQ TABCR PO SCH ×2 (09:02→20:31)
--- NOTE | 2018-01-10 15:10 | Urology Consultation ---
History General Date of Service: Jan 10, 2018. Chief Complaint: urinary retention Primary Care Physician: Ha Rain MD Pt seen a urologist before?: Yes (Dr. Llamas, Dr. Vanegas ) If yes, why?: BPH with urinary retention History of Present Illness 87 yo male admitted for fevers and weakness. consulted for worsening urinary retention and ? prostatitis. UA performed on admission was negative, however the pt's states that he was taking Bactrim DS for possible UTI as per [facility] [place] [facility] prior to admission for worsening frequency and urgency. No UC&S performed. Blood cultures since admission noted to be negative. Only noted to have a temp as high as 37.8C once this admission. The pt is noted to have needed increasing straight caths this admission for PVRs up to 700ml. Prior to this he was cathing once or twice daily at home and was voiding some on his own as well. He denies any dysuria, hematuria, penile pain, rectal pain, scrotal pain, bladder pain, urgency, or frequency today. He does have a hx of BPH with UR for which he has seen both Dr. Vanegas and Dr. Llamas over the past 4 months. Initial catheter placement in September or October yielded 2000ml. He then failed his first TOV in October, but was able to void for second voiding trial in November. Since that time he was performing CIC once or twice daily for PVRs around 300-400ml. Flomax and finasteride have been initiated. Ultrasound from Dr. Vanegas showing a 55g prostate with intravesical lobe. Per Dr. Llamas's initial meeting with the pt on 12-29-17, he did not feel the pt would be a great candidate for uro-lift and felt he may not be a great candidate for TURP given his age and relatively small prostate. The pt was instructed at that time to continue CIC and wean if PVRs remained, Flomax initiated, and was to f/u in 2 months. Laboratory Last 24 Hours Test 01/10/18 07:32 Sodium Level 134 mmol/L Potassium Level 3.1 mmol/L Chloride Level 102 mmol/L Carbon Dioxide Level 24 mmol/L Anion Gap 7.0 mmol/L Blood Urea Nitrogen 14 mg/dl Creatinine 0.88 mg/dl Est Creatinine Clear Calc Drug Dose 59.2 ml/min Estimated GFR () 90.8 Estimated GFR (Non- 78.3 BUN/Creatinine Ratio 16.2 Random Glucose 95 mg/dl Calcium Level 8.1 mg/dl Thyroid Stimulating Hormone (TSH) 1.130 uIu/ml Problem List Medical Problems: (1) Dehydration Status: Acute (2) Generalized weakness Status: Acute (3) PNA (pneumonia) Status: Acute Past History BPH (with urinary retention ), gout, high cholesterol, hypothyroidism, other ( syncope) Past Surgical History: appendectomy, other Family History FH: diabetes mellitus MOTHER FH: heart attack FATHER, Onset:60 years & older Social History Hx Tobacco Use In Past Year?: No Smoking: other (former smoker ) Marital status: Housing status: lives with significant other Occupation status: retired Immunizations History of Influenza Vaccine: Yes Influenza Vaccine Date: Aug 07, 2017 History of Tetanus Vaccine?: Yes Tetanus Immunization Date: Jan 22, 2010 History of Pneumococcal: Yes Pneumococcal Date: February 20, 2015 History of Hepatitis B Vaccine: Unknown History of MDRO No Allergies Coded Allergies: Penicillins (Unverified Allergy, Unknown, RASH, 01/07/18) Medications Home Medications: Home Meds and Scripts Medications Dose Route/Sig Max Daily Dose Days Date Category Bactrim Ds 800MG/160MG (Trimethoprim/Sulfamethoxazole) Tab Unknown Dose PO BID 01/07/18 Reported Flomax (Tamsulosin Hcl) 0.4 Mg Cap 0.4 Mg PO HS 01/07/18 Reported Proscar (Finasteride) 5 Mg Tab 5 Mg PO DAILY 01/07/18 Reported Synthroid (Levothyroxine Sodium) 50 Mcg Tab 50 Mcg PO DAILY 09/30/17 Reported Zyloprim (Allopurinol) 100 Mg Tab 100 Mg PO DAILY 09/30/17 Reported Zocor (Simvastatin) 20 Mg Tab 20 Mg PO QPM 09/30/17 Reported Inpatient Medications: Current Inpatient Medications Medications (Trade) Dose Ordered Sig/Nataly Route Start Time Stop Time Status Last Admin Dose Admin Acetaminophen (Tylenol Tab) 650 mg Q4H PRN PO 01/08/18 02:30 02/07/18 02:29 Ondansetron HCl (Zofran Inj) 4 mg Q6H PRN IV 01/08/18 02:30 02/07/18 02:29 Heparin Sodium (Porcine) (Heparin Sq 5000 Unit/0.5ml) 5,000 unit Q12H SQ 01/08/18 09:00 02/07/18 08:59 01/10/18 09:00 5,000 UNIT Allopurinol (Zyloprim Tab) 100 mg DAILY PO 01/08/18 09:00 02/07/18 08:59 01/10/18 08:58 100 MG Finasteride (Proscar Tab) 5 mg DAILY PO 01/08/18 09:00 02/07/18 08:59 01/10/18 08:58 5 MG Simvastatin (Zocor Tab) 20 mg QPM PO 01/08/18 21:00 02/07/18 20:59 01/09/18 21:11 20 MG Tamsulosin HCl (Flomax Cap) 0.4 mg HS PO 01/08/18 21:00 02/07/18 20:59 01/09/18 21:10 0.4 MG Miscellaneous (Iv Fluids Completed) 1 ea PRN PRN N/A 01/08/18 06:45 01/08/19 06:44 Gadobutrol (Gadavist) 6.5 mmol UD PRN IV 01/08/18 22:30 01/12/18 22:29 Potassium Chloride (Klor-Con Tab) 20 meq BID PO 01/10/18 09:00 02/09/18 08:59 01/10/18 09:02 20 MEQ Levothyroxine Sodium (Synthroid Tab) 50 mcg DAILY@0830 PO 01/11/18 08:30 02/07/18 06:29 Review of Systems Review of Systems Constitutional: No fever, No chills Eyes: No double vision Neurological: No dizzy Endocrine: No excessive thirst Gastrointestinal: No abdominal pain, No nausea, No vomiting Cardiovascular: No chest pain Respiratory: No shortness of breath Skin: No rash Musculoskeletal: No back pain Male : + urinary retention, No painful urination, No blood in urine Physical Exam Vital Signs: Vital Signs Past 12 Hours Date Time Temp Pulse Resp B/P (MAP) Pulse Ox O2 Delivery O2 Flow Rate FiO2 01/10/18 09:12 Room Air 01/10/18 08:59 37.0 71 16 107/48 (67) 92 85 117/60 (79) 88 115/53 (73) Physical Exam: General Appearance: no apparent distress Eyes: bilateral eyes normal inspection ENT: hearing grossly normal Neck: no JVD Respiratory/Chest: no respiratory distress, no accessory muscle use Cardiovascular: no JVD Genitourinary - Male: Prostate: size (55gr), rubbery, pertinent finding (no nodules or tenderness on exam ) Extremities: normal inspection Neurologic/Psychiatric: alert, normal mood/affect, oriented x 3 Skin: normal color Assessment & Plan Assessment & Plan A/P: BPH with urinary retention Pt with a non-tender 55gm rubbery prostate without nodule on exam this afternoon. Given his lack of prostatitis symptoms and normal LAMAR, I do not feel prostatitis is present at this time. I will order a cath UC&S as he is not currently on abx. As for his BPH with urinary retention, I did spend >45mins at length with both the pt and his this afternoon discussing his urinary retention. I have presented him with 2 options at this time which include placing a arshad catheter for 7-10 days and then reattempting a trial of void vs initiating cathing QID with weaning over the next few weeks if PVRs improve. The pt and his have ultimately decided to try continuing CIC QID for now. The pt is also scheduled for UDS in [place] on 01-29. At this time I do not feel that is necessary unless Dr. Llamas feels he would like to proceed with a TURP. In that case, we can certainly do UDS at our [place] office if needed. The pt's plans to cancel the UDS with Treva and f/u with Dr. Llamas in the future. Will arrange for f/u with Dr. Llamas in the next 2 weeks. He is to continue a bladder diary of PVRs with cathing. Thanks for the consult. Will continue to follow along with primary service.
[2018-01-10 15:15] VITALS: BP 102/56; PULSE 67; TEMP 36.5; O2SAT 94
[2018-01-10 15:18] VITALS: BP 98/61; PULSE 68; O2SAT 95
[2018-01-10 15:21] VITALS: BP 115/62; PULSE 78; O2SAT 95
[2018-01-10] MEDS: SIMVASTATIN 20 MG TAB PO SCH (20:31)
[2018-01-10] MEDS: TAMSULOSIN HCL 0.4 MG CAP PO SCH (20:31)
--- NOTE | 2018-01-10 22:14 | Progress Note ---
Medicine Progress Note Date & Time of Visit: Jan 10, 2018 at 09:50 . Subjective Better. Requiring ongoing intermittent straight caths for urinary retention. Has some spontaneous voiding between straight caths. No dysuria. No fever. No chest pain. No cough or shortness of breath. No nausea, vomiting, diarrhea. . Objective Last 8 Hrs Date Time Temp Pulse Resp B/P (MAP) Pulse Ox O2 Delivery O2 Flow Rate FiO2 01/10/18 16:00 Room Air 01/10/18 15:21 78 22 115/62 (79) 95 Room Air 01/10/18 15:18 68 98/61 (73) 95 Room Air 01/10/18 15:15 36.5 67 19 102/56 (71) 94 Room Air Physical Exam: General- lying in bed; no distress Lungs- clear to auscultation; no respiratory distress Cardiovascular- RRR; no gallop appreciated; no JVD; no pretibial edema Abdomen- + bowel sounds, soft, nontender Extremities- no cyanosis; no calf tenderness Neuro- alert, oriented Skin- warm & dry . Laboratory Results: Last 24 Hours Test 01/10/18 07:32 Sodium Level 134 mmol/L Potassium Level 3.1 mmol/L Chloride Level 102 mmol/L Carbon Dioxide Level 24 mmol/L Anion Gap 7.0 mmol/L Blood Urea Nitrogen 14 mg/dl Creatinine 0.88 mg/dl Est Creatinine Clear Calc Drug Dose 59.2 ml/min Estimated GFR () 90.8 Estimated GFR (Non- 78.3 BUN/Creatinine Ratio 16.2 Random Glucose 95 mg/dl Calcium Level 8.1 mg/dl Thyroid Stimulating Hormone (TSH) 1.130 uIu/ml Date/Time Source Procedure Growth Status 01/10/18 21:50 Urine,Catheterized Urine Culture Pending Received Assessment & Plan POSSIBLE UTI Started empiric treatment with TMP / sulfa for dysuria last week. UA negative at time of admission. Blood cultures negative. ? partially treated UTI. Not receiving any antibiotics at this time. Afebrile. Worsening urinary retention. Consult Urology. URINARY RETENTION Worsening symptoms requiring more frequent straight caths. Continue tamsulosin and finasteride. Consult Urology. AMBULATORY DYSFUNCTION Gait improving. Continue PT / OT. ELEVATED "LFT's" AST, ALT, alk phos slightly elevated; total bilirubin normal. Acute hepatitis profile negative. ? viral syndrome. Improving. Follow. GOUT Continue allopurinol. HYPOKALEMIA Serum potassium 3.1. Oral replacement. Follow. VTE PROPHYLAXIS SQ heparin. Ambulate. DISPOSITION Expected discharge to home. Internal Medicine follow-up with Dr. Rain. Urology follow-up with Dr. Llamas. . Current Inpatient Medications: Current Inpatient Medications Medications (Trade) Dose Ordered Sig/Nataly Route Start Time Stop Time Status Last Admin Dose Admin Acetaminophen (Tylenol Tab) 650 mg Q4H PRN PO 01/08/18 02:30 02/07/18 02:29 Ondansetron HCl (Zofran Inj) 4 mg Q6H PRN IV 01/08/18 02:30 02/07/18 02:29 Heparin Sodium (Porcine) (Heparin Sq 5000 Unit/0.5ml) 5,000 unit Q12H SQ 01/08/18 09:00 02/07/18 08:59 01/10/18 20:35 5,000 UNIT Allopurinol (Zyloprim Tab) 100 mg DAILY PO 01/08/18 09:00 02/07/18 08:59 01/10/18 08:58 100 MG Finasteride (Proscar Tab) 5 mg DAILY PO 01/08/18 09:00 02/07/18 08:59 01/10/18 08:58 5 MG Simvastatin (Zocor Tab) 20 mg QPM PO 01/08/18 21:00 02/07/18 20:59 01/10/18 20:31 20 MG Tamsulosin HCl (Flomax Cap) 0.4 mg HS PO 01/08/18 21:00 02/07/18 20:59 01/10/18 20:31 0.4 MG Miscellaneous (Iv Fluids Completed) 1 ea PRN PRN N/A 01/08/18 06:45 01/08/19 06:44 Gadobutrol (Gadavist) 6.5 mmol UD PRN IV 01/08/18 22:30 01/12/18 22:29 Potassium Chloride (Klor-Con Tab) 20 meq BID PO 01/10/18 09:00 02/09/18 08:59 01/10/18 20:31 20 MEQ Levothyroxine Sodium (Synthroid Tab) 50 mcg DAILY@0830 PO 01/11/18 08:30 02/07/18 06:29
[2018-01-10 23:08] VITALS: BP 124/78; PULSE 73; TEMP 37; O2SAT 92
[2018-01-11 07:40] LABS: HEMATOCRIT 34.4 % (42-52); HEMOGLOBIN 11.8 g/dL (14.0-18.0); MEAN CELL VOLUME 90.1 fL (80-100); MEAN CORPUSCULAR HEMOGLOBIN 30.9 pg (25-34); MEAN CORPUSCULAR HGB CONC 34.3 g/dl (32-36); MEAN PLATELET VOLUME 10.9 fL (7.4-10.4); PLATELET COUNT 154 K/uL (130-400); RED CELL DISTRIBUTION WIDTH CV 13.8 % (11.5-14.5); RED CELL DISTRIBUTION WIDTH SD 45.6 fL (36.4-46.3); WHITE BLOOD COUNT 7.17 K/uL (4.8-10.8)
[2018-01-11 07:51] VITALS: BP 102/55; PULSE 76; TEMP 36.7; O2SAT 94
[2018-01-11 08:06] LABS: ALBUMIN 2.1 gm/dl (3.4-5.0); CALCIUM 8.3 mg/dl (8.5-10.1); CREATININE 0.87 mg/dl (0.60-1.40); POTASSIUM 3.3 mmol/L (3.5-5.1)
[2018-01-11 08:09] LABS: TOTAL PROTEIN 5.3 gm/dl (6.4-8.2)
[2018-01-11] MEDS ORDERED: LEVOTHYROXINE 50 MCG TAB PO SCH (08:30)
[2018-01-11] MEDS: FINASTERIDE 5 MG TAB PO SCH (08:37)
[2018-01-11] MEDS: ALLOPURINOL 100 MG TAB PO SCH (08:37)
[2018-01-11] MEDS: POTASSIUM CHLORIDE 20 MEQ TABCR PO SCH (08:37)
[2018-01-11] MEDS: HEPARIN SOD 5000 UNIT/0.5 ML CARP SQ SCH (08:43)
[2018-01-11 09:02] VITALS: O2SAT 94
[2018-01-11] MEDS ORDERED: MISC-573 (11:03)
--- NOTE | 2018-01-11 14:21 | DIAGNOSTIC IMAGING REPORT ---
ABDOMEN LIMITED (US) HISTORY: 87 years-old Male elevated LFT's COMPARISON: Chest radiograph 01/07/2018 TECHNIQUE: Multiple real-time sonographic images of the abdominal right upper quadrant were obtained assessing grayscale appearance and color flow FINDINGS: Pancreas is obscured by bowel gas. Small right pleural effusion incidentally noted. The liver appears unremarkable without focal hepatic mass lesion or intrahepatic biliary ductal dilation. Common bile duct is normal, 3 mm. The gallbladder appears to be within normal limits without wall thickening, pericholecystic fluid collections or cholelithiasis. Imaged right kidney is unremarkable, 8.5 cm in length. IMPRESSION: 1. No cholelithiasis or sonographic evidence of acute cholecystitis. 2. No biliary ductal dilation. 3. Small right pleural effusion incidentally noted. The above report was generated using voice recognition software. It may contain grammatical, syntax or spelling errors. Electronically signed by: Hector Mosqueda M.D. 01/11/2018 2:20 PM Dictated Date/Time: 01/11/2018 2:16 PM
[2018-01-11 16:30] VITALS: BP 104/64; PULSE 72; TEMP 36.4; O2SAT 95
--- NOTE | 2018-01-11 17:00 | Progress Note ---
Medicine Progress Note Date & Time of Visit: Jan 11, 2018 at 16:59 . Subjective Doing well. Still requiring intermittent straight caths, but has some spontaneous voiding. No dysuria or hematuria. No fever, chills, sweats. No chest pain, cough, shortness of breath, nausea, vomiting, diarrhea. Ambulating without difficulty; using walker for minimal support. Anxious to go home. . Objective Last 8 Hrs Date Time Temp Pulse Resp B/P (MAP) Pulse Ox O2 Delivery O2 Flow Rate FiO2 01/11/18 16:30 36.4 72 18 104/64 (77) 95 01/11/18 16:00 Room Air 01/11/18 09:02 94 Room Air Physical Exam: General- no distress Lungs- clear to auscultation; no respiratory distress Cardiovascular- RRR; no gallop appreciated; no JVD; no pretibial edema Abdomen- + bowel sounds, soft, nontender Extremities- no cyanosis; no calf tenderness Neuro- alert, oriented Skin- warm & dry . Laboratory Results: Last 24 Hours Test 01/11/18 07:13 White Blood Count 7.17 K/uL Red Blood Count 3.82 M/uL Hemoglobin 11.8 g/dL Hematocrit 34.4 % Mean Corpuscular Volume 90.1 fL Mean Corpuscular Hemoglobin 30.9 pg Mean Corpuscular Hemoglobin Concent 34.3 g/dl RDW Standard Deviation 45.6 fL RDW Coefficient of Variation 13.8 % Platelet Count 154 K/uL Mean Platelet Volume 10.9 fL Sodium Level 134 mmol/L Potassium Level 3.3 mmol/L Chloride Level 103 mmol/L Carbon Dioxide Level 24 mmol/L Anion Gap 7.0 mmol/L Blood Urea Nitrogen 12 mg/dl Creatinine 0.87 mg/dl Est Creatinine Clear Calc Drug Dose 59.9 ml/min Estimated GFR () 91.2 Estimated GFR (Non- 78.7 BUN/Creatinine Ratio 13.3 Random Glucose 94 mg/dl Calcium Level 8.3 mg/dl Total Bilirubin 0.6 mg/dl Aspartate Amino Transf (AST/SGOT) 40 U/L Alanine Aminotransferase (ALT/SGPT) 64 U/L Alkaline Phosphatase 172 U/L Total Protein 5.3 gm/dl Albumin 2.1 gm/dl Globulin 3.2 gm/dl Albumin/Globulin Ratio 0.6 Date/Time Source Procedure Growth Status 01/10/18 21:50 Urine,Catheterized Urine Culture - Preliminary NO GROWTH - LESS THAN 1,000 COLONIES/... Resulted Assessment & Plan FEVER / POSSIBLE UTI Started empiric treatment with TMP / sulfa for dysuria week prior to admission. UA negative at time of admission. Blood cultures negative. Urine culture on 01/10/18 was negative. Afebrile. No apparent need for further antibiotic therapy. URINARY RETENTION Worsening symptoms requiring more frequent straight caths. Continue tamsulosin and finasteride. Urology consulted. Continue intermittent straight caths. AMBULATORY DYSFUNCTION Gait improving. Continue PT / OT. ELEVATED "LFT's" LFT's: Item Value Date Time Total Bilirubin 0.7 mg/dl 01/07/182254 Aspartate Amino Transf (AST/SGOT) 132 U/L H 01/07/18 2255 Alanine Aminotransferase (ALT/SGPT) 97 U/L H 01/07/18 2255 Alkaline Phosphatase 158 U/L H 01/07/18 2255 Total Bilirubin 0.6 mg/dl 01/08/18 0720 Aspartate Amino Transf (AST/SGOT) 119 U/L H 01/08/18 0720 Alanine Aminotransferase (ALT/SGPT) 105 U/L H 01/08/18 0720 Alkaline Phosphatase 152 U/L H 01/08/18 0720 Total Bilirubin 0.6 mg/dl 01/09/18 0642 Aspartate Amino Transf (AST/SGOT) 67 U/L H 01/09/18 0642 Alanine Aminotransferase (ALT/SGPT) 93 U/L H 01/09/18 0642 Alkaline Phosphatase 149 U/L H 01/09/18 0642 Total Bilirubin 0.6 mg/dl 01/11/18 0713 Aspartate Amino Transf (AST/SGOT) 40 U/L H 01/11/18 0713 Alanine Aminotransferase (ALT/SGPT) 64 U/L 01/11/18 0713 Alkaline Phosphatase 172 U/L H 01/11/18 0713 Acute hepatitis profile negative. US RUQ unremarkable. ? viral syndrome. Improving. Hold statin. Follow. GOUT Continue allopurinol. HYPOKALEMIA Serum potassium as low as 3.1. Received oral replacement. Discharge on KCl 20 mEq BID x 7 days. Follow. VTE PROPHYLAXIS SQ heparin. Ambulate. DISPOSITION Discharged to home. Internal Medicine follow-up with Dr. Rain. Urology follow-up with Dr. Llamas. . Current Inpatient Medications: Current Inpatient Medications Medications (Trade) Dose Ordered Sig/Nataly Route Start Time Stop Time Status Last Admin Dose Admin Acetaminophen (Tylenol Tab) 650 mg Q4H PRN PO 01/08/18 02:30 02/07/18 02:29 Ondansetron HCl (Zofran Inj) 4 mg Q6H PRN IV 01/08/18 02:30 02/07/18 02:29 Heparin Sodium (Porcine) (Heparin Sq 5000 Unit/0.5ml) 5,000 unit Q12H SQ 01/08/18 09:00 02/07/18 08:59 01/11/18 08:43 5,000 UNIT Allopurinol (Zyloprim Tab) 100 mg DAILY PO 01/08/18 09:00 02/07/18 08:59 01/11/18 08:37 100 MG Finasteride (Proscar Tab) 5 mg DAILY PO 01/08/18 09:00 02/07/18 08:59 01/11/18 08:37 5 MG Simvastatin (Zocor Tab) 20 mg QPM PO 01/08/18 21:00 02/07/18 20:59 01/10/18 20:31 20 MG Tamsulosin HCl (Flomax Cap) 0.4 mg HS PO 01/08/18 21:00 02/07/18 20:59 01/10/18 20:31 0.4 MG Miscellaneous (Iv Fluids Completed) 1 ea PRN PRN N/A 01/08/18 06:45 01/08/19 06:44 Gadobutrol (Gadavist) 6.5 mmol UD PRN IV 01/08/18 22:30 01/12/18 22:29 Potassium Chloride (Klor-Con Tab) 20 meq BID PO 01/10/18 09:00 02/09/18 08:59 01/11/18 08:37 20 MEQ Levothyroxine Sodium (Synthroid Tab) 50 mcg DAILY@0830 PO 01/11/18 08:30 02/07/18 06:29 01/11/18 08:37 50 MCG
[2018-01-11] MEDS ORDERED: MCRK20 PO (17:01)
--- NOTE | 2018-01-11 17:09 | Discharge Instructions ---
Discharge Instructions Date of Service Jan 11, 2018. Admission Reason for Admission: fever, weakness, difficulty walking . Discharge Discharge Diagnosis / Problem: fever, weakness, difficulty walking, trouble emptying bladder Discharge Goals Goal(s): Decrease discomfort, Improve disease control Activity Recommendations Activity Limitations: resume your previous activity (with walker until better) . Instructions / Follow-Up Instructions / Follow-Up APPOINTMENTS: INTERNAL MEDICINE 01/15/2018 10:20 AM Kala Casas MD (covering for Dr. Rain) UROLOGY Dr. Llamas. OTHER INSTRUCTIONS: Continue straight caths 4 times a day as instructed. Hold simvastatin (Zocor) until liver function tests improve. Your potassium level was low. Take potassium chloride pills 20 mEq twice a day for [address] Casas to: check blood test (comprehensive metabolic profile) make referral to physical therapy Seek medical attention if you have: * temperature above 101 * chest pain or trouble breathing * abdominal pain, nausea, vomiting * diarrhea, dark stools or bloody stools * burning when you urinate or blood in urine * any unanswered questions or concerns Call 911 if symptoms are severe. Call if you have any questions or problems. My cell # is [phone]. You can also reach a [facility] hospitalist on duty at [facility] 24 hours a day by calling [phone]. Please take good care of yourself. Elder Whitney . Current Hospital Diet Patient's current hospital diet: Regular Diet Discharge Diet Recommended Diet: AHA Diet (Heart Healthy) Procedures Procedures Performed: CT brain- age-related changes, no sign of stroke MRI brain- age-related changes, no sign of stroke Ultrasound of liver and gallbladder- no problems seen Pending Studies Studies pending at discharge: no Medical Emergencies . Who to Call and When: Medical Emergencies: If at any time you feel your situation is an emergency, please call 911 immediately. . Non-Emergent Contact Non-Emergency issues call your: Primary Care Provider, Hospital Doctor, Urologist . . "Provider Documentation" section prepared by Elder Whitney. .
[2018-01-11 17:32] VITALS: BP 104/64; PULSE 72; TEMP 36.4; O2SAT 95
--- NOTE | 2018-01-11 18:05 | Progress Note ---
Subjective Date of Service: Jan 11, 2018. Subjective Pt evaluation today including: conversation w/ patient, chart review, lab review Voiding: requires PRN straight cath Pt feeling well this evening. Pending discharge. Voided 150ml urine prior to seeing him. Continues CIC PRN. Problem List Medical Problems: (1) Dehydration Status: Acute (2) Generalized weakness Status: Acute (3) PNA (pneumonia) Status: Acute Review of Systems Constitutional: No fever, No chills Respiratory: No shortness of breath Cardiac: No chest pain Abdomen: No pain, No nausea, No vomiting Male : + slowing stream, No dysuria, No hematuria Heme: No abnormal bleeding/bruising Objective Vital Signs Date Time Temp Pulse Resp B/P (MAP) Pulse Ox O2 Delivery O2 Flow Rate FiO2 01/11/18 17:32 36.4 72 18 95 Room Air 01/11/18 16:30 36.4 72 18 104/64 (77) 95 01/11/18 16:00 Room Air 01/11/18 09:02 94 Room Air 01/11/18 07:51 36.7 76 18 102/55 (71) 94 01/11/18 00:00 Room Air 01/10/18 23:08 37.0 73 20 124/78 (93) 92 Room Air Physical Exam General Appearance: no apparent distress Eyes: normal inspection ENT: hearing grossly normal Neck: no JVD Respiratory/Chest: no respiratory distress, no accessory muscle use Cardiovascular: no JVD Extremities: normal inspection Neurologic/Psychiatric: alert, normal mood/affect, oriented x 3 Skin: normal color Laboratory Results Last 24 Hours Test 01/11/18 07:13 White Blood Count 7.17 K/uL Red Blood Count 3.82 M/uL Hemoglobin 11.8 g/dL Hematocrit 34.4 % Mean Corpuscular Volume 90.1 fL Mean Corpuscular Hemoglobin 30.9 pg Mean Corpuscular Hemoglobin Concent 34.3 g/dl RDW Standard Deviation 45.6 fL RDW Coefficient of Variation 13.8 % Platelet Count 154 K/uL Mean Platelet Volume 10.9 fL Sodium Level 134 mmol/L Potassium Level 3.3 mmol/L Chloride Level 103 mmol/L Carbon Dioxide Level 24 mmol/L Anion Gap 7.0 mmol/L Blood Urea Nitrogen 12 mg/dl Creatinine 0.87 mg/dl Est Creatinine Clear Calc Drug Dose 59.9 ml/min Estimated GFR () 91.2 Estimated GFR (Non- 78.7 BUN/Creatinine Ratio 13.3 Random Glucose 94 mg/dl Calcium Level 8.3 mg/dl Total Bilirubin 0.6 mg/dl Aspartate Amino Transf (AST/SGOT) 40 U/L Alanine Aminotransferase (ALT/SGPT) 64 U/L Alkaline Phosphatase 172 U/L Total Protein 5.3 gm/dl Albumin 2.1 gm/dl Globulin 3.2 gm/dl Albumin/Globulin Ratio 0.6 Assessment and Plan A/P: BPH with urinary retention AFVSS. Continue finasteride and Flomax. Continue CIC once to four times daily depending on outputs. Pt instructed to keep a voiding and PVR dairy. Will arrange for f/u with Dr. Llamas in the next 2 weeks. Discuss the need for possible UDS and TURP at that time. The pt was seen and assessed with Dr. Umana this evening. Discharge planning: home
--- NOTE | 2018-01-12 21:38 | Discharge Summary ---
Discharge Summary Date of Service Jan 12, 2018. Discharge Summary Admission Date: Jan 08, 2018 at 15:27 Discharge Date: Jan 11, 2018 Discharge Disposition: Home Principal Diagnosis: febrile illness OTHER ACUTE / SECONDARY DIAGNOSES: -e-u-c-e-r-e-d- -n-a-e-t-a-l- -h-q-i-t-u-s- [error MATTHEW 01/12/18 @ 21:50] urinary retention elevated LFT's hypokalemia ambulatory dysfunction . 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 Procedures: IV fluids CT head MRI brain US abdomen PT OT . Consultations: Urology . Pending Studies/Follow-Up: Please check comprehensive metabolic profile in clinic. . Medication Reconciliation New Medications: Misc. Devices (Roller Walker) 1 Mis Mis UNIT, #1 Dx: ambulatory dysfunction Potassium Chloride (Klor-Con M20) 20 Meq Tabcr 20 MEQ PO BID, #14 TAB Continued Medications: Allopurinol (Zyloprim) 100 Mg Tab 100 MG PO DAILY Finasteride (Proscar) 5 Mg Tab 5 MG PO DAILY, TAB Levothyroxine Sodium (Synthroid) 50 Mcg Tab 50 MCG PO DAILY Tamsulosin Hcl (Flomax) 0.4 Mg Cap 0.4 MG PO HS, CAP Discontinued Medications: Simvastatin (Zocor) 20 Mg Tab 20 MG PO QPM Sulfa/Trimethoprim (Bactrim Ds 800MG/160MG) Tab Unknown Dose PO BID Admission Information HPI (per Admitting provider): He is an 87-year-old male with significant past medical history of hypothyroidism, hyperlipidemia, history of syncope, gout, benign prostatic hypertrophy that requires daily catheterization. Apparently, he has had fever on Monday and since then, he has not been eating or drinking enough and getting weak day by day. He does have some cough, but no other symptoms of shortness of breath and/or wheezing. He denies to have any abdominal pain, nausea or vomiting. He denies to have any problem with his urine and he has been doing self catheterization once a day. He does not have any bowel problem. He has been getting weaker day by day and today, he could hardly walk. He was almost about to fall whenever he was trying to go to the bathroom at home. He had a staggering gait as well. In the Emergency Room, his initial blood workup came out to be unremarkable, but again he was unstable on his feet to be sent home. . Physical Exam (per Admitting): GENERAL: On examination in the Emergency Room, he was not having any acute distress. He looked flushed without any apparent distress. VITAL SIGNS: Temperature 36.6, pulse 75, blood pressure 124/54 with standing and that went down to 119/50, saturation 92% on room air. HEENT: Unremarkable. NECK: Supple. No JVD, no bruit. CHEST: Clear to auscultate bilaterally. HEART: S1, S2 regular. ABDOMEN: Soft, benign, nontender, no organomegaly. Renal angles were not tender, hypogastrium not tender. Bowel sounds present. EXTREMITIES: Negative for any edema. MUSCULOSKELETAL: Did not show any acute arthritis. CENTRAL NERVOUS SYSTEM: He was alert, awake, oriented x3, generally weak, but no focal neurological deficit. . Hospital Course FEVER / POSSIBLE UTI Started empiric treatment with TMP / sulfa for dysuria week prior to admission. UA negative at time of admission. Blood cultures negative. Urine culture on 01/10/18 was negative. Afebrile. No apparent need for further antibiotic therapy. -D-U-U-E-R-E-D- -Y-I-U-T-A-L- -J-J-O-T-U-S- -D-j-r-b-a-b-l-e- -v-g-m-a-p-g-w-b-v-p-a-t-h-y- -q-s-l-d-s-r-a-r-y- -t-o- -k-r-c-r-i-l-e- -g-y-g-n-e-s-s-.- -C-T- -a-n-d- -M-R-I- -o-p-h-a-t-i-v-e- -f-o-r- -a-c-u-t-e- -j-n-s-n-t-s-.- -D-n-z-o-l-v-e-d-.- [error MATTHEW 01/12/18 @ 21:50] URINARY RETENTION Worsening symptoms requiring more frequent straight caths. Continue tamsulosin and finasteride. Urology consulted. Continue intermittent straight caths. AMBULATORY DYSFUNCTION Gait improving. Continue PT / OT. ELEVATED "LFT's" LFT's: Item Value Date Time Total Bilirubin 0.7 mg/dl 01/07/182254 Aspartate Amino Transf (AST/SGOT) 132 U/L H 01/07/18 2255 Alanine Aminotransferase (ALT/SGPT) 97 U/L H 01/07/18 2255 Alkaline Phosphatase 158 U/L H 01/07/18 2255 Total Bilirubin 0.6 mg/dl 01/08/18 0720 Aspartate Amino Transf (AST/SGOT) 119 U/L H 01/08/18 0720 Alanine Aminotransferase (ALT/SGPT) 105 U/L H 01/08/18 0720 Alkaline Phosphatase 152 U/L H 01/08/18 0720 Total Bilirubin 0.6 mg/dl 01/09/18 0642 Aspartate Amino Transf (AST/SGOT) 67 U/L H 01/09/18 0642 Alanine Aminotransferase (ALT/SGPT) 93 U/L H 01/09/18 0642 Alkaline Phosphatase 149 U/L H 01/09/18 0642 Total Bilirubin 0.6 mg/dl 01/11/18 0713 Aspartate Amino Transf (AST/SGOT) 40 U/L H 01/11/18 0713 Alanine Aminotransferase (ALT/SGPT) 64 U/L 01/11/18 0713 Alkaline Phosphatase 172 U/L H 01/11/18 0713 Acute hepatitis profile negative. US RUQ unremarkable. ? viral syndrome. Improving. Hold statin. Follow. GOUT Continue allopurinol. HYPOKALEMIA Serum potassium as low as 3.1. Received oral replacement. Discharge on KCl 20 mEq BID x 7 days. Follow. VTE PROPHYLAXIS SQ heparin. Ambulate. DISPOSITION Discharged to home. Internal Medicine follow-up with Dr. Rain. Urology follow-up with Dr. Llamas. . Total time spent on discharge = 40 min. This includes examination of the patient, discharge planning, medication reconciliation, and communication with other providers. . Discharge Instructions Date of Service Jan 11, 2018. Admission Reason for Admission: fever, weakness, difficulty walking . Discharge Discharge Diagnosis / Problem: fever, weakness, difficulty walking, trouble emptying bladder Discharge Goals Goal(s): Decrease discomfort, Improve disease control Activity Recommendations Activity Limitations: resume your previous activity (with walker until better) . Instructions / Follow-Up Instructions / Follow-Up APPOINTMENTS: INTERNAL MEDICINE 01/15/2018 10:20 AM Kala Casas MD (covering for Dr. Rain) UROLOGY Dr. Llamas. OTHER INSTRUCTIONS: Continue straight caths 4 times a day as instructed. Hold simvastatin (Zocor) until liver function tests improve. Your potassium level was low. Take potassium chloride pills 20 mEq twice a day for [address] Casas to: check blood test (comprehensive metabolic profile) make referral to physical therapy Seek medical attention if you have: * temperature above 101 * chest pain or trouble breathing * abdominal pain, nausea, vomiting * diarrhea, dark stools or bloody stools * burning when you urinate or blood in urine * any unanswered questions or concerns Call 911 if symptoms are severe. Call if you have any questions or problems. My cell # is [phone]. You can also reach a [facility] hospitalist on duty at [facility] 24 hours a day by calling [phone]. Please take good care of yourself. Elder Whitney . Current Hospital Diet Patient's current hospital diet: Regular Diet Discharge Diet Recommended Diet: AHA Diet (Heart Healthy) Procedures Procedures Performed: CT brain- age-related changes, no sign of stroke MRI brain- age-related changes, no sign of stroke Ultrasound of liver and gallbladder- no problems seen Pending Studies Studies pending at discharge: no Medical Emergencies . Who to Call and When: Medical Emergencies: If at any time you feel your situation is an emergency, please call 911 immediately. . Non-Emergent Contact Non-Emergency issues call your: Primary Care Provider, Hospital Doctor, Urologist . . "Provider Documentation" section prepared by Elder Whitney. . Additional Copies To Viviana Kauffman CRNP; Ha Rain MD; Lane Llamas M.D.
== END 2018-01-11 18:10 | disposition home or self-care (01) | DRG 690 ==
LOC: C.EDB 22:40 → C.MS2W 01-08 02:27 → ENRESERV 01-08 02:51 → OBSVTOIN 01-08 15:27
PROVIDERS: ADMIT Internal Medicine; ATTEND Hospitalist
DX: N39.0 Urinary tract infection, site not specified (principal); M10.9 Gout, unspecified; E87.6 Hypokalemia; E03.9 Hypothyroidism, unspecified; R33.9 Retention of urine, unspecified; E86.0 Dehydration; R26.2 Difficulty in walking, not elsewhere classified; E78.5 Hyperlipidemia, unspecified; N40.1 Benign prostatic hyperplasia with lower urinary tract symptoms; Z86.14 Personal history of Methicillin resistant Staphylococcus aureus infection; Z88.0 Allergy status to penicillin; Z95.818 Presence of other cardiac implants and grafts

== ENCOUNTER → 2018-01-19 | Outpatient (CLI) | payer OTHER, MEDICARE ==
[~2018-01-19] MED LIST changes: -CEFD300C3 PO; +CIPR-304 PO; +FINA5TAB PO; +MCRK20 PO; +MISC-573; -SIMV20TA2 PO; +SIMV20TA5 PO; +TAMS0.4C38 PO
== END ==
LOC: C.LABBC 11:44
PROVIDERS: ATTEND Nurse Practitioner Adult Health
DX: N39.0 Urinary tract infection, site not specified (principal)

== ENCOUNTER → 2018-01-23 | Outpatient (CLI) | payer OTHER, MEDICARE ==
[2018-01-23 16:33] LABS: BASO % 0.6 %; BASO ABS # 0.04 K/uL (0-0.2); EOS % 0.9 %; EOS ABS # 0.06 K/uL (0-0.5); HEMATOCRIT 40.2 % (42-52); HEMOGLOBIN 13.6 g/dL (14.0-18.0); IG# 0.01 K/uL (0.00-0.02); LYMPH % 18.9 %; LYMPH ABS # 1.33 K/uL (1.2-3.4); MEAN CELL VOLUME 92.2 fL (80-100); MEAN CORPUSCULAR HEMOGLOBIN 31.2 pg (25-34); MEAN CORPUSCULAR HGB CONC 33.8 g/dl (32-36); MEAN PLATELET VOLUME 9.5 fL (7.4-10.4); MONO % 8.7 %; MONO ABS # 0.61 K/uL (0.11-0.59); NEUT % 70.8 %; NEUT ABS # 4.99 K/uL (1.4-6.5); PLATELET COUNT 359 K/uL (130-400); RED CELL DISTRIBUTION WIDTH CV 13.6 % (11.5-14.5); RED CELL DISTRIBUTION WIDTH SD 45.6 fL (36.4-46.3); WHITE BLOOD COUNT 7.04 K/uL (4.8-10.8)
[2018-01-23 17:01] LABS: BLOOD UREA NITROGEN 22 mg/dl (7-18); CALCIUM 9.2 mg/dl (8.5-10.1); CARBON DIOXIDE 29 mmol/L (21-32); CREATININE 1.12 mg/dl (0.60-1.40); GLUCOSE 103 mg/dl (70-99); POTASSIUM 4.3 mmol/L (3.5-5.1); SODIUM 132 mmol/L (136-145)
--- NOTE | 2018-01-23 17:44 | DIAGNOSTIC IMAGING REPORT ---
CHEST 2 VIEWS ROUTINE CLINICAL HISTORY: URINARY RETENTION COMPARISON STUDY: 01/07/2018 FINDINGS: The cardiac and mediastinal contours remain stable. There is no acute parenchymal consolidation. There is no failure. There are no pleural effusions. An electronic device projects over the left chest likely representing an event recorder. There is stable right apical pleural thickening.[ IMPRESSION: No active disease in the chest. Electronically signed by: Mychal Urrutia M.D. 01/23/2018 5:43 PM Dictated Date/Time: 01/23/2018 5:42 PM
== END | disposition home or self-care (01) ==
LOC: C.LAB 15:30 → C.CPL 15:30 → EDSTATUS 16:34
PROVIDERS: ATTEND Urology
DX: R33.9 Retention of urine, unspecified (principal)

== ENCOUNTER 2018-01-29 05:23 | Observation (INO) | payer OTHER, MEDICARE ==
[2018-01-25 15:45] VITALS: Ht 172.7 cm; Wt 70.5 kg
[2018-01-29] VITALS (10 sets, daily range): BP systolic 100–135; BP diastolic 50–68; PULSE 56–65; TEMP 36.4–36.6; O2SAT 95–99
[~2018-01-29] VITALS: Ht 172.7 cm; Wt 70.5 kg
[~2018-01-29 05:23] MED LIST changes: -MCRK20 PO; -MISC-573
[2018-01-29] MEDS ORDERED: CEFTRIAXONE SOD INJ 1000 MG in DEXTROSE 5% 50ML IV SCH (06:00)
[2018-01-29] MEDS ORDERED: SODIUM CHLORIDE 0.9% 1000ML 1,000 ML IV SCH (06:00)
[2018-01-29] MEDS ORDERED: FENTANYL CITRATE INJ 50 MCG/1 ML 2 ML VIAL ONE (06:59)
--- NOTE | 2018-01-29 07:11 | History & Physical Bridge Note ---
H&P Re-Evaluation Bridge Note: I have examined the patient, reviewed the History & Physical and in the interval since the performance of the History & Physical I have noted the following changes of clinical significance: No changes noted
[2018-01-29] MEDS ORDERED: EpHEDrine SULFATE INJ 50 MG/ML AMP ONE (07:44)
[2018-01-29] MEDS ORDERED: PROPOFOL IV EMULSION 10 MG/ML 20 ML VIAL ONE (07:44)
[2018-01-29] MEDS ORDERED: LIDOCAINE HCL 2% 2 ML VIAL (20MG/ML) ONE (07:44)
[2018-01-29] MEDS ORDERED: ONDANSETRON INJ 2 MG/ML 2 ML VIAL ONE (07:44)
[2018-01-29] MEDS ORDERED: BELLADONNA/OPIUM SUPP 60 MG SUPP PR ONE ×2 (07:49→08:08)
--- NOTE | 2018-01-29 08:07 | [facility] Operative Report ---
Operative Report Operative Date Jan 29, 2018. Pre-Operative Diagnosis Benign Prostatic Hyperplasia with Urinary Retention Post-Operative Diagnosis BPH with urinary retention Procedure(s) Performed Cystoscopy, TURP Surgeon Dr. Llamas Early Intervention Specialist Surgeon(s) none Estimated Blood Loss 5 ml Drains 22 Romanian catheter Anesthesia Type General Complication(s) none Disposition yes Indications Urinary retention Description of Procedure Patient was identified in the preoperative holding area, appropriate informed consents reviewed and completed he was transported to the operating suite. Upon arrival he received appropriate preoperative antibiotics in the form of ciprofloxacin. Adequate general anesthesia was achieved, he was placed in dorsal lithotomy position where he was sterilely prepped and draped in standard fashion. We began the case by passing a 27 Romanian resectoscope with 30 lens and visual obturator. Inspection revealed no evidence of stricture disease. Is moderately enlarged prostate with lateral lobe hypertrophy and a small intravesical component. Inspection of the bladder revealed a heavily trabeculated bladder with ureteral orifices in orthotopic position. I began the case by incising the bladder neck at 5 and 7:00 with care to avoid encroachment upon the ureteral orifices. I carried this incision back towards the verumontanum and then resected the intervening tissue between the 2 incisions. Proceeded then to resect the left lateral lobe followed by the right lateral lobe. After completely opening the prostatic urethra, I obtained meticulous hemostasis and reinspected the bladder. There were no chips or specimens within the bladder. There was excellent hemostasis, removed the scope and concluded the case. A 22 Romanian Warren catheter was inserted without difficulty and the balloon inflated with 30 cc of sterile water. Patient was subsequently extubated and taken to the PACU in stable condition I attest to the content of the Intraoperative Record and any orders documented therein. Any exceptions are noted below.
[2018-01-29] MEDS ORDERED: ACETAMINOPHEN 325 MG TAB PO PRN (08:15)
[2018-01-29] MEDS ORDERED: ACETAMINOPHEN/CODEINE 300/30MG TAB PO PRN (08:15)
[2018-01-29] MEDS ORDERED: ONDANSETRON INJ 2 MG/ML 2 ML VIAL IV PRN ×2 (08:15→08:45)
[2018-01-29] MEDS ORDERED: FENTANYL CITRATE INJ 50 MCG/1 ML 2 ML VIAL IV PRN (08:45)
[2018-01-29] MEDS ORDERED: LABETALOL HCL IV 5 MG/ML 20ML IV PRN (08:45)
[2018-01-29] MEDS ORDERED: ATROPINE SULFATE 0.1 MG/ML 5ML SYR IV PRN (08:45)
[2018-01-29] MEDS ORDERED: EpHEDrine SULFATE INJ 50 MG/ML AMP IV PRN (08:45)
[2018-01-29 09:26] LABS: BASO % 0.4 %; BASO ABS # 0.02 K/uL (0-0.2); EOS % 1.6 %; EOS ABS # 0.09 K/uL (0-0.5); HEMATOCRIT 39.1 % (42-52); HEMOGLOBIN 13.3 g/dL (14.0-18.0); IG# 0.01 K/uL (0.00-0.02); LYMPH % 23.7 %; LYMPH ABS # 1.31 K/uL (1.2-3.4); MEAN CORPUSCULAR HEMOGLOBIN 31.3 pg (25-34); MEAN PLATELET VOLUME 9.8 fL (7.4-10.4); MONO % 7.2 %; NEUT % 66.9 %; NEUT ABS # 3.69 K/uL (1.4-6.5); PLATELET COUNT 216 K/uL (130-400); RED CELL DISTRIBUTION WIDTH CV 13.6 % (11.5-14.5); RED CELL DISTRIBUTION WIDTH SD 45.4 fL (36.4-46.3); WHITE BLOOD COUNT 5.52 K/uL (4.8-10.8)
[2018-01-29 09:42] LABS: CALCIUM 8.5 mg/dl (8.5-10.1); CREATININE 0.94 mg/dl (0.60-1.40); POTASSIUM 4.1 mmol/L (3.5-5.1)
[2018-01-29] MEDS: LACTATED RINGER'S 1000ML 1,000 ML IV SCH ×2 (10:23→19:30)
[2018-01-29] MEDS: CIPROFLOXACIN 500 MG TAB PO SCH ×2 (10:30→19:36)
--- NOTE | 2018-01-29 10:41 | Anesthesiology Progress Note ---
Anesthesia Post Op Note Date & Time Jan 29, 2018 at 10:41 Vital Signs Pain Intensity: 0 Vital Signs Past 12 Hours Date Time Temp Pulse Resp B/P (MAP) Pulse Ox O2 Delivery O2 Flow Rate FiO2 01/29/18 10:20 36.6 56 15 105/56 (72) 96 Room Air 01/29/18 09:50 60 16 107/58 (74) 96 Room Air 01/29/18 09:20 95 Room Air 01/29/18 09:20 97 Room Air 01/29/18 09:19 36.5 58 18 121/61 (81) 95 Room Air 01/29/18 09:05 36.8 61 16 111/64 94 Room Air 01/29/18 08:55 36.8 60 16 121/63 94 Room Air 01/29/18 08:45 62 16 121/58 94 Room Air 01/29/18 08:35 63 16 105/74 97 Oxymask 10 01/29/18 08:25 67 16 126/63 99 Oxymask 10 01/29/18 08:15 36.5 67 16 129/65 99 Oxymask 10 01/29/18 06:11 36.4 62 18 135/68 (90) 99 Room Air Notes Mental Status: alert / awake / arousable, participated in evaluation Pt Amnestic to Procedure: Yes Nausea / Vomiting: adequately controlled Pain: adequately controlled Airway Patency, RR, SpO2: stable & adequate BP & HR: stable & adequate Hydration State: stable & adequate Anesthetic Complications: no major complications apparent
[2018-01-29] MEDS ORDERED: IV FLUIDS COMPLETED PRN (14:30)
[2018-01-29] MEDS: SIMVASTATIN 20 MG TAB PO SCH ×2 (19:36→19:40)
[2018-01-29] MEDS ORDERED: ALLOPURINOL 100 MG TAB PO SCH (21:00)
[2018-01-30 03:15] VITALS: BP 120/55; PULSE 63; TEMP 36.5; O2SAT 93
[2018-01-30] MEDS: LACTATED RINGER'S 1000ML 1,000 ML IV SCH ×2 (05:15→15:45)
[2018-01-30] MEDS ORDERED: LEVOTHYROXINE 50 MCG TAB PO SCH (06:00)
[2018-01-30 06:02] LABS: BASO % 0.1 %; BASO ABS # 0.01 K/uL (0-0.2); EOS % 2.7 %; HEMATOCRIT 38.7 % (42-52); HEMOGLOBIN 13.3 g/dL (14.0-18.0); IG# 0.02 K/uL (0.00-0.02); LYMPH % 15.6 %; LYMPH ABS # 1.14 K/uL (1.2-3.4); MEAN CELL VOLUME 92.4 fL (80-100); MEAN CORPUSCULAR HEMOGLOBIN 31.7 pg (25-34); MEAN CORPUSCULAR HGB CONC 34.4 g/dl (32-36); MEAN PLATELET VOLUME 10.1 fL (7.4-10.4); MONO % 10.8 %; MONO ABS # 0.79 K/uL (0.11-0.59); NEUT % 70.5 %; NEUT ABS # 5.16 K/uL (1.4-6.5); PLATELET COUNT 201 K/uL (130-400); RED CELL DISTRIBUTION WIDTH CV 13.8 % (11.5-14.5); RED CELL DISTRIBUTION WIDTH SD 46.1 fL (36.4-46.3); WHITE BLOOD COUNT 7.32 K/uL (4.8-10.8)
[2018-01-30 06:39] LABS: CALCIUM 8.5 mg/dl (8.5-10.1); CREATININE 1.06 mg/dl (0.60-1.40); POTASSIUM 4.1 mmol/L (3.5-5.1)
--- NOTE | 2018-01-30 07:33 | Anesthesiology Progress Note ---
Anesthesia Post Op Note Date & Time January 30, 2018 at 07:33 Vital Signs Pain Intensity: 0.0 Vital Signs Past 12 Hours Date Time Temp Pulse Resp B/P (MAP) Pulse Ox O2 Delivery O2 Flow Rate FiO2 01/30/18 03:15 36.5 63 18 120/55 (76) 93 Room Air 01/29/18 22:50 36.6 61 17 109/63 (78) 97 Room Air Notes Mental Status: alert / awake / arousable Pt Amnestic to Procedure: Yes Nausea / Vomiting: adequately controlled Pain: adequately controlled Airway Patency, RR, SpO2: stable & adequate BP & HR: stable & adequate Hydration State: stable & adequate
[2018-01-30 07:52] VITALS: BP 128/72; PULSE 64; TEMP 36.4; O2SAT 95
[2018-01-30] MEDS: CIPROFLOXACIN 500 MG TAB PO SCH (08:21)
--- NOTE | 2018-01-30 08:23 | Progress Note ---
Subjective Date of Service: January 30, 2018. Subjective Pt evaluation today including: conversation w/ patient, chart review, lab review Voiding: arshad catheter in place (patent, draining clear, yellow urine with some old clot) 87 yo male s/p TURP. Pt feels well this morning. Anxious to get out of bed. Denies pain. Problem List Medical Problems: (1) Dehydration Status: Acute (2) Generalized weakness Status: Acute (3) PNA (pneumonia) Status: Acute Review of Systems Constitutional: No fever, No chills Respiratory: No shortness of breath Cardiac: No chest pain Abdomen: No pain, No nausea, No vomiting Male : No hematuria Heme: No abnormal bleeding/bruising Objective Vital Signs Date Time Temp Pulse Resp B/P (MAP) Pulse Ox O2 Delivery O2 Flow Rate FiO2 01/30/18 07:52 36.4 64 18 128/72 (90) 95 Room Air 01/30/18 03:15 36.5 63 18 120/55 (76) 93 Room Air 01/29/18 22:50 36.6 61 17 109/63 (78) 97 Room Air 01/29/18 19:30 Room Air 01/29/18 18:56 36.5 58 16 108/63 (78) 97 Room Air 01/29/18 12:30 36.4 65 16 110/56 (74) 96 Room Air 01/29/18 11:14 36.5 62 16 100/50 (67) 96 Room Air 01/29/18 10:38 96 Room Air 01/29/18 10:20 36.6 56 15 105/56 (72) 96 Room Air 01/29/18 09:50 60 16 107/58 (74) 96 Room Air 01/29/18 09:20 95 Room Air 01/29/18 09:20 97 Room Air 01/29/18 09:19 36.5 58 18 121/61 (81) 95 Room Air 01/29/18 09:05 36.8 61 16 111/64 94 Room Air 01/29/18 08:55 36.8 60 16 121/63 94 Room Air 01/29/18 08:45 62 16 121/58 94 Room Air 01/29/18 08:35 63 16 105/74 97 Oxymask 10 01/29/18 08:25 67 16 126/63 99 Oxymask 10 Physical Exam General Appearance: no apparent distress Eyes: normal inspection ENT: hearing grossly normal Neck: no JVD Respiratory/Chest: no respiratory distress, no accessory muscle use Cardiovascular: no JVD Extremities: normal inspection Neurologic/Psychiatric: alert, normal mood/affect, oriented x 3 Skin: normal color Laboratory Results Last 24 Hours Test 01/29/18 09:12 01/30/18 05:49 White Blood Count 5.52 K/uL 7.32 K/uL Red Blood Count 4.25 M/uL 4.19 M/uL Hemoglobin 13.3 g/dL 13.3 g/dL Hematocrit 39.1 % 38.7 % Mean Corpuscular Volume 92.0 fL 92.4 fL Mean Corpuscular Hemoglobin 31.3 pg 31.7 pg Mean Corpuscular Hemoglobin Concent 34.0 g/dl 34.4 g/dl Platelet Count 216 K/uL 201 K/uL Mean Platelet Volume 9.8 fL 10.1 fL Neutrophils (%) (Auto) 66.9 % 70.5 % Lymphocytes (%) (Auto) 23.7 % 15.6 % Monocytes (%) (Auto) 7.2 % 10.8 % Eosinophils (%) (Auto) 1.6 % 2.7 % Basophils (%) (Auto) 0.4 % 0.1 % Neutrophils # (Auto) 3.69 K/uL 5.16 K/uL Lymphocytes # (Auto) 1.31 K/uL 1.14 K/uL Monocytes # (Auto) 0.40 K/uL 0.79 K/uL Eosinophils # (Auto) 0.09 K/uL 0.20 K/uL Basophils # (Auto) 0.02 K/uL 0.01 K/uL RDW Standard Deviation 45.4 fL 46.1 fL RDW Coefficient of Variation 13.6 % 13.8 % Immature Granulocyte % (Auto) 0.2 % 0.3 % Immature Granulocyte # (Auto) 0.01 K/uL 0.02 K/uL Sodium Level 135 mmol/L 133 mmol/L Potassium Level 4.1 mmol/L 4.1 mmol/L Chloride Level 103 mmol/L 102 mmol/L Carbon Dioxide Level 26 mmol/L 28 mmol/L Anion Gap 6.0 mmol/L 3.0 mmol/L Blood Urea Nitrogen 18 mg/dl 17 mg/dl Creatinine 0.94 mg/dl 1.06 mg/dl Est Creatinine Clear Calc Drug Dose 55.6 ml/min 49.3 ml/min Estimated GFR () 85.3 73.8 Estimated GFR (Non- 73.6 63.7 BUN/Creatinine Ratio 19.3 16.2 Random Glucose 102 mg/dl 94 mg/dl Calcium Level 8.5 mg/dl 8.5 mg/dl Assessment and Plan POD #1 s/p TURP AFVSS. Labs stable. Will do a TOV this morning. D/c home later this morning if pt voids. D/c home on Colace, Tylenol #3, and 3 days of Cipro. Discharge planning: home
[2018-01-30] MEDS ORDERED: DOCU-94 PO (08:25)
[2018-01-30] MEDS ORDERED: ACET-749 PO (08:25)
[2018-01-30] MEDS ORDERED: CIPR-304 PO (08:25)
--- NOTE | 2018-01-30 08:29 | Discharge Instructions ---
Discharge Instructions Date of Service January 30, 2018. Admission Reason for Admission: Benign Prostatic Hyperplasia Discharge Discharge Diagnosis / Problem: Benign Prostatic Hyperplasia Discharge Goals Goal(s): Decrease discomfort, Improve disease control, Therapeutic intervention Activity Recommendations Activity Limitations: as noted below Lifting Limitations: no more than 25 pounds (x 2 weeks ) Exercise/Sports Limitations: gradually increase as tolerated (light activity x 2 weeks ) Shower/Bathe: no limitations Driving or Machine Use: resume 3 days after discharge (Do not drive while taking narcotics. ) Finish all of the antibiotic Ciprofloxacin as prescribed. Follow-up with Dr. Llamas as scheduled. Please call our office at if you need to reschedule for any reason. Current Hospital Diet Patient's current hospital diet: Regular Diet Discharge Diet Recommended Diet: Regular Diet Procedures Procedures Performed: Cystoscopy, TURP Pending Studies Studies pending at discharge: no Medical Emergencies . Who to Call and When: Medical Emergencies: If at any time you feel your situation is an emergency, please call 911 immediately. . Non-Emergent Contact Non-Emergency issues call your: Urologist Call Non-Emergent contact if: temperature is above 101.5, your pain is not controlled, your pain is worsening, your pain is unusual for you, your pain is concerning you, you have any medication questions . . "Provider Documentation" section prepared by Viviana Kauffman. . [place] Drug Monitoring Program Search Results: patient reviewed within database, no issues identified
[2018-01-30 09:31] VITALS: O2SAT 95
[2018-01-30 11:56] VITALS: BP 124/64; PULSE 64; TEMP 36.7; O2SAT 94
[2018-01-30 15:09] VITALS: BP 124/64; PULSE 64; TEMP 36.7; O2SAT 94
--- NOTE | 2018-02-01 08:07 | Discharge Summary ---
Discharge Summary Date of Service February 01, 2018. Admission Date/Reason Jan 29, 2018 at 08:19 Benign Prostatic Hyperplasia. Discharge Date/Disposition January 30, 2018 Home Diagnosis Principal Diagnosis: urinary retention/BPH Procedure(s) Performed TURP Medication Reconciliation New Medications: Docusate Sodium (Colace) 100 Mg Cap 1 CAP PO BID PRN for Constipation for 15 Days, #30 CAP Acetaminophen/Codeine (Tylenol W/Codeine #3) 300 Mg/30 Mg Tab 1 TAB PO Q6H PRN for moderate pain (pain scale 4-6), #15 TAB 0 Refills Continued Medications: Allopurinol (Zyloprim) 100 Mg Tab 100 MG PO QPM Ciprofloxacin HCl (Ciprofloxacin) 500 Mg Tab 500 MG PO BID for UTI, #6 0 Refills (This prescription has been renewed) TO FINISH 01/29/18 Finasteride (Proscar) 5 Mg Tab 5 MG PO QPM, TAB Levothyroxine Sodium (Synthroid) 50 Mcg Tab 50 MCG PO QAM Simvastatin (Zocor) 20 Mg Tab 20 MG PO QPM, TAB ON HOLD R/T ELEVATED LIVER ENZYMES Discontinued Medications: Tamsulosin Hcl (Flomax) 0.4 Mg Cap 0.4 MG PO HS, CAP Admission Physical Exam As per Admitting History & Physical. Hospital Course Admitted for a TURP. Details as dictated in the operative report, in summary, he tolerated the procedure well and progressed appropriately overnight. He, did not pass a voiding trial on the morning of POD#1 and a catheter was reinserted. He was discharged in stable condition with a catheter in place. Discharge Instructions Please refer to the electronic Patient Visit Report (Discharge Instructions) for additional information.
== END 2018-01-30 16:24 | disposition home or self-care (01) ==
LOC: C.ACU 05:23 → C.MSW 08:19 → ENRESERV 09:00
PROVIDERS: ADMIT Urology; ATTEND Urology
DX: N40.1 Benign prostatic hyperplasia with lower urinary tract symptoms (principal); R33.8 Other retention of urine; N13.8 Other obstructive and reflux uropathy; E78.5 Hyperlipidemia, unspecified; Z90.89 Acquired absence of other organs; Z83.3 Family history of diabetes mellitus; Z82.49 Family history of ischemic heart disease and other diseases of the circulatory system; Z79.899 Other long term (current) drug therapy; Z88.0 Allergy status to penicillin